=== PATIENT | female | born 1945 | race Caucasian/White ===

== ENCOUNTER 2018-05-13 11:40 | Outpatient (CLI) | payer SELFPAY | END 2018-05-13 11:41 | disposition EMS.NT | LOC: EMS 11:40 | PROVIDERS: ATTEND Surgery | DX: R47.81 Slurred speech (principal); R53.83 Other fatigue ==

== ENCOUNTER 2018-12-08 08:39 | Outpatient (CLI) | payer MEDICARE ==
--- NOTE | 2018-12-08 11:23 | XRAY Report ---
Reason: COUGH,SOB Procedure Date: 12/08/2018 Accession Number: [id number] / [id number] Procedure: XRS - Chest 2 View X-Ray CPT Code: 60110 FULL RESULT: EXAM: CHEST RADIOGRAPHY EXAM DATE: 12/08/2018 10:45 AM. CLINICAL HISTORY: Cough, shortness of breath. COMPARISON: None. TECHNIQUE: 2 views. FINDINGS: Lungs/Pleura: No focal opacities evident. No pleural effusion. No pneumothorax. Normal volumes. Mediastinum: Heart and mediastinal contours are suggestive of mild borderline cardiomegaly. Other: None. IMPRESSION: Question mild borderline cardiomegaly, otherwise no acute cardiopulmonary abnormality is detected. RADIA
== END 2018-12-08 08:40 | disposition home or self-care (01) ==
LOC: DI.S 08:39
PROVIDERS: ATTEND Family Medicine
DX: J20.9 Acute bronchitis, unspecified (principal); J45.41 Moderate persistent asthma with (acute) exacerbation
CPT/HCPCS: 71046

== ENCOUNTER 2019-01-04 16:31 | Outpatient (CLI) | payer MEDICARE, OTHER ==
--- NOTE | 2019-01-05 08:16 | Ultrasound Report ---
Reason: L LE EDEMA, CALF PAIN, TTP Procedure Date: 01/04/2019 Accession Number: [id number] / [id number] Procedure: US - Duplex Ext Veins Left CPT Code: FULL RESULT: EXAM: LEFT LOWER EXTREMITY VENOUS ULTRASOUND EXAM DATE: 01/04/2019 05:24 PM. CLINICAL HISTORY: Left lower extremity edema, calf pain, tenderness to palpation. COMPARISON: None. TECHNIQUE: Real-time sonographic vascular imaging was performed by the land development project manager through the lower extremity utilizing both color-flow and Doppler spectral analysis. Multiple business banking representative static images were saved for review. FINDINGS: Common Femoral Vein (CFV): Normal. CFV-GSV Junction: Normal. Profunda Femoral Vein (PFV): Normal. Femoral Vein (FV) Prox: Normal. Femoral Vein (FV) Mid: Normal. Femoral Vein (FV) Dist: Normal. Popliteal Vein: Normal. Posterior Tibial Veins: Limited visualization. Given the limitations, no thrombus identified. Peroneal Veins: Limited visualization. Given the limitations, no thrombus identified. Contralateral Side CFV: Normal. Other: Evaluation of the calf vessels limited due to body habitus. IMPRESSION: 1. Suboptimal visualization of posterior tibial and peroneal veins. 2. Given the limitations, no evidence for deep venous thrombosis. RADIA
== END 2019-01-04 16:32 | disposition home or self-care (01) ==
LOC: DI 16:31
PROVIDERS: ATTEND Family Medicine
DX: M79.662 Pain in left lower leg (principal); R60.0 Localized edema

== ENCOUNTER 2019-06-09 11:36 | Outpatient (CLI) | payer MEDICARE ==
[2019-06-09 17:08] LABS: BASOPHILS # (AUTO) 0.1 10^3/uL (0.0-0.1); BASOPHILS % (AUTO) 0.8 %; EOSINOPHILS # (AUTO) 0.3 10^3/uL (0.0-0.7); EOSINOPHILS % (AUTO) 3.5 %; HGB - HEMOGLOBIN 13.1 g/dL (12.0-16.0); LYMPHOCYTES # (AUTO) 1.8 10^3/uL (1.5-3.5); MEAN CORPUSCULAR HEMOGLOBIN 30.5 pg (27.0-31.0); MEAN CORPUSCULAR VOLUME 95.6 fL (81.0-99.0); MONOCYTES # (AUTO) 0.7 10^3/uL (0.0-1.0); MONOCYTES % (AUTO) 8.9 %; NEUTROPHILS # (AUTO) 5.2 10^3/uL (1.5-6.6); NEUTROPHILS % (AUTO) 64.5 %; PLT - PLATELET COUNT 239 10^3/uL (130-450); RED BLOOD COUNT 4.29 10^6/uL (4.20-5.40)
[2019-06-09 17:20] LABS: HB2 TOTAL 13.2 g/dL; HEMOGLOBIN A1C 0.58 g/dL; HEMOGLOBIN A1C % 6.2 % (4.6-6.2)
[2019-06-09 18:02] LABS: ALBUMIN 3.9 g/dL (3.2-5.5); ALBUMIN/GLOBULIN RATIO 1.3 (1.0-2.2); ALKALINE PHOSPHATASE 57 IU/L (42-121); ALT ALANINE AMINOTRANSFERASE 30 IU/L (10-60); AST ASPARTATE AMINOTRANSFERASE 28 IU/L (10-42); BILIRUBIN,TOTAL 0.8 mg/dL (0.2-1.0); BUN - BLOOD UREA NITROGEN 12 mg/dL (6-20); CALCIUM 8.9 mg/dL (8.5-10.3); CARBON DIOXIDE - CO2 26 mmol/L (21-32); CHLORIDE 106 mmol/L (101-111); CHOL/HDL RATIO 2.6 (<4.4); CHOLESTEROL 115 mg/dL; CREATININE 0.7 mg/dL (0.4-1.0); GFR - MDRD 82 (>89); GLUCOSE 99 mg/dL (70-100); HDL CHOLESTEROL 44 mg/dL; LDL CHOLESTEROL,CALCULATED 51 mg/dL; LDL/HDL RATIO 1.2 (<4.4); SODIUM 139 mmol/L (135-145); VLDL CHOLESTEROL 20 mg/dL
[2019-06-09 18:13] LABS: FREE T4 (FREE THYROXINE) 0.83 ng/dL (0.58-1.64)
[2019-06-09 18:16] LABS: FERRITIN 60.5 ng/mL (11.0-306.8); TOTAL T3 0.88 ng/mL (0.87-1.78)
[2019-06-13 14:14] LABS: T3 REVERSE 15 ng/dL (8-25)
== END 2019-06-09 11:37 | disposition home or self-care (01) ==
LOC: LAB.S 11:36
PROVIDERS: ATTEND Internal Medicine
DX: Z00.00 Encounter for general adult medical examination without abnormal findings (principal); E78.5 Hyperlipidemia, unspecified; I10 Essential (primary) hypertension; I67.89 Other cerebrovascular disease; R73.01 Impaired fasting glucose; E03.9 Hypothyroidism, unspecified; R79.82 Elevated C-reactive protein (CRP); R73.03 Prediabetes; D72.821 Monocytosis (symptomatic); E34.9 Endocrine disorder, unspecified; R53.83 Other fatigue; E66.01 Morbid (severe) obesity due to excess calories
CPT/HCPCS: 36415; 80053; 80061; 82626; 82728; 83036; 83721; 84439; 84443; 84480; 84481; 84482; 85025; 86140; 86141

== ENCOUNTER 2019-06-27 14:36 | Emergency (ER) | payer MEDICARE, OTHER ==
[2019-06-27 15:16] LABS: BASOPHILS # (AUTO) 0.1 10^3/uL (0.0-0.1); BASOPHILS % (AUTO) 0.7 %; EOSINOPHILS # (AUTO) 0.3 10^3/uL (0.0-0.7); EOSINOPHILS % (AUTO) 3.1 %; HGB - HEMOGLOBIN 12.7 g/dL (12.0-16.0); LYMPHOCYTES # (AUTO) 1.8 10^3/uL (1.5-3.5); LYMPHOCYTES % (AUTO) 19.8 %; MEAN CORPUSCULAR HEMOGLOBIN 30.5 pg (27.0-31.0); MEAN CORPUSCULAR HGB CONC 32.2 g/dL (32.0-36.0); MEAN CORPUSCULAR VOLUME 94.7 fL (81.0-99.0); MEAN PLATELET VOLUME 10.9 fL (7.9-10.8); MONOCYTES % (AUTO) 11.2 %; NEUTROPHILS % (AUTO) 64.8 %; PLT - PLATELET COUNT 244 10^3/uL (130-450); RED BLOOD COUNT 4.16 10^6/uL (4.20-5.40); RED CELL DISTRIBUTION WIDTH 12.8 % (12.0-15.0); WHITE BLOOD COUNT 9.2 x10^3/uL (4.8-10.8)
--- NOTE | 2019-06-27 15:26 | XRAY Report ---
Reason: Chest Pain Procedure Date: 06/27/2019 Accession Number: [id number] / [id number] Procedure: XR - Chest 1 View X-Ray CPT Code: 35767 Final Report FULL RESULT: EXAM: CHEST RADIOGRAPHY EXAM DATE: 06/27/2019 03:07 PM. CLINICAL HISTORY: Chest Pain. COMPARISON: None. TECHNIQUE: 1 view. FINDINGS: Lungs/Pleura: No focal opacities evident. No pleural effusion. No pneumothorax. Mediastinum: Within exam limitations, the cardiomediastinal contour is normal. Other: None. IMPRESSION: Normal single view chest. RADIA
[2019-06-27 15:29] LABS: ALBUMIN/GLOBULIN RATIO 1.3 (1.0-2.2); BILIRUBIN,TOTAL 0.7 mg/dL (0.2-1.0); CALCIUM 9.2 mg/dL (8.5-10.3); CREATININE 0.7 mg/dL (0.4-1.0)
--- NOTE | 2019-06-27 15:34 | ED Physician Documentation ---
History of Present Illness - Stated complaint Stated Complaint: CP X 3 DAYS - Chief complaint Chief Complaint: Cardiac - History obtained from History obtained from: Patient, Friend - History of Present Illness Timing: How many days ago (3) Pain level max: 4 Pain level now: 0 - Additonal information Additional information: 73-year-old female presents to the emergency department stating that she had left-sided chest pain while working out a few days ago, this resolved quickly after she stopped working out. She was asymptomatic until today when she developed right-sided chest pain. She states that her right arm felt strange as well. This lasted 4 to 5 minutes. Has since resolved. She is on Plavix from a prior TIA. She states that she is followed by cardiology at [facility] and has an appointment on . She is currently asymptomatic. Nothing makes it better or worse. She has been ambulating throughout the day without any pain or without any difficulty. Review of Systems Ten Systems: 10 systems reviewed and negative Constitutional: denies: Fever, Chills Nose: denies: Rhinorrhea / runny nose, Congestion Throat: denies: Sore throat Respiratory: denies: Cough GI: denies: Vomiting, Diarrhea Skin: denies: Rash Musculoskeletal: denies: Neck pain, Back pain Neurologic: denies: Headache PD PAST MEDICAL HISTORY - Past Medical History Past Medical History: Yes Neuro: TIA - Past Surgical History Past Surgical History: No - Allergies Allergies/Adverse Reactions: Allergies Allergy/AdvReac Type Severity Reaction Status Date / Time Sulfa (Sulfonamide AdvReac Rash Verified 06/27/19 14:41 Antibiotics) - Living Situation Living Arrangement: reports: At home - Social History Does the pt drink ETOH?: No Does the pt have substance abuse?: No - Family History Family history: reports: CAD PD ED PE NORMAL - Vitals Vital signs reviewed: Yes - General General: Alert and oriented X 3, No acute distress, Well developed/nourished - HEENT HEENT: Moist mucous membranes - Neck Neck: Supple, no meningeal sign, No bruit - Cardiac Cardiac: RRR, No murmur, Strong equal pulses - Respiratory Respiratory: No respiratory distress, Clear bilaterally - Abdomen Abdomen: Soft, Non tender, Non distended - Derm Derm: Warm and dry - Extremities Extremities: No edema, No calf tenderness / cord - Neuro Neuro: Alert and oriented X 3 - Psych Psych: Normal mood, Normal affect Results - Vitals Vitals: Vital Signs - 24 hr 06/27/19 06/27/19 06/27/19 14:42 15:12 16:17 Temperature 36.7 C Heart Rate 69 67 66 Respiratory 16 18 18 Rate Blood Pressure 148/72 H 149/72 H 138/65 H O2 Saturation 98 97 99 Oxygen O2 Source Room air - EKG (time done) 1450 Rate: Rate (enter#) (68) Rhythm: NSR [place]: Normal Intervals: Prolonged [place] QRS: Normal Ischemia: Normal ST segments - Labs Labs: Laboratory Tests 06/27/19 06/27/19 06/27/19 15:09 15:09 15:09 WBC 9.2 RBC 4.16 L Hgb 12.7 Hct 39.4 MCV 94.7 MCH 30.5 MCHC 32.2 RDW 12.8 Plt Count 244 MPV 10.9 H Neut # (Auto) 6.0 Lymph # (Auto) 1.8 [place] # (Auto) 1.0 Eos # (Auto) 0.3 Baso # (Auto) 0.1 Absolute Nucleated RBC 0.00 Nucleated RBC % 0.0 Sodium 138 Potassium 4.2 Chloride 101 Carbon Dioxide 26 Anion Gap 11.0 BUN 14 Creatinine 0.7 Estimated GFR (MDRD) 82 L Glucose 95 Calcium 9.2 Total Bilirubin 0.7 AST 27 ALT 27 Alkaline Phosphatase 54 Troponin I High Sens 2.7 Total Protein 7.0 Albumin 4.0 Globulin 3.0 Albumin/Globulin Ratio 1.3 Lipase 37 - Rads (name of study) cxr Radiology: Prelim report reviewed, EMP read contemporaneously, See rad report (normal) PD MEDICAL DECISION MAKING - ED course Complexity details: reviewed results, re-evaluated patient, considered differential (No ST elevation [place], no aortic dissection, no PE, no tension pneumothorax, no aortic aneurysm), d/w patient ED course: Patient with episodes of chest pain over the past several days. Negative high- sensitivity troponin. I spoke with on-call cardiology at [facility] who reviewed her chart. She had a calcium score of 0 in the spring 2017. Had a negative cardiac stress test in 2012. We will have her continue her Plavix and she will follow-up with her doctor on to discuss a repeat stress test. I have r ecommended to her that she avoid strenuous activity until she is released by her doctor. Patient counseled regarding signs and symptoms for which I believe and urgent re-evaluation would be necessary. Patient with good understanding of and agreement to plan and is comfortable going home at this time This document was made in part using voice recognition software. While efforts are made to proofread this document, sound alike and grammatical errors may occur. Departure - Departure Disposition: Home, Self Care Clinical Impression: Chest pain Qualifiers: Chest pain type: unspecified Qualified Code(s): R07.9 - Chest pain, unspecified Condition: Good Instructions: ED Chest Pain Atypical Unkn Cause Follow-Up: Alejandro Gerard MD [Primary Care Provider] - ROSINA NUNO MD [Physician No Access] - Within 3 Days Comments: Continue your current medications at home. 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 Avoid intense exercise until then.
[2019-06-27 16:20] VITALS: BP 138/65
== END 2019-06-27 16:25 | disposition home or self-care (01) ==
LOC: ED 14:36
DX: R07.9 Chest pain, unspecified (principal)
CPT/HCPCS: 36415; 71045; 80053; 83690; 84484; 85025; 93005; 99284

== ENCOUNTER 2019-10-26 13:12 | Outpatient (CLI) | payer MEDICARE, OTHER ==
[2019-10-26 13:35] LABS: BASOPHILS # (AUTO) 0.1 10^3/uL (0.0-0.1); BASOPHILS % (AUTO) 0.7 %; EOSINOPHILS # (AUTO) 0.3 10^3/uL (0.0-0.7); EOSINOPHILS % (AUTO) 2.9 %; HGB - HEMOGLOBIN 12.9 g/dL (12.0-16.0); LYMPHOCYTES # (AUTO) 2.3 10^3/uL (1.5-3.5); LYMPHOCYTES % (AUTO) 26.4 %; MEAN CORPUSCULAR HEMOGLOBIN 30.1 pg (27.0-31.0); MEAN CORPUSCULAR HGB CONC 32.4 g/dL (32.0-36.0); MEAN CORPUSCULAR VOLUME 92.8 fL (81.0-99.0); MEAN PLATELET VOLUME 10.6 fL (7.9-10.8); MONOCYTES # (AUTO) 0.9 10^3/uL (0.0-1.0); MONOCYTES % (AUTO) 9.9 %; NEUTROPHILS # (AUTO) 5.2 10^3/uL (1.5-6.6); NEUTROPHILS % (AUTO) 59.9 %; PLT - PLATELET COUNT 254 10^3/uL (130-450); RED BLOOD COUNT 4.29 10^6/uL (4.20-5.40); RED CELL DISTRIBUTION WIDTH 12.5 % (12.0-15.0); WHITE BLOOD COUNT 8.6 x10^3/uL (4.8-10.8)
[2019-10-26 13:45] LABS: HB2 TOTAL 13.7 g/dL; HEMOGLOBIN A1C 0.53 g/dL; HEMOGLOBIN A1C % 5.7 % (4.6-6.2)
[2019-10-26 13:51] LABS: ALBUMIN 4.1 g/dL (3.2-5.5); ALBUMIN/GLOBULIN RATIO 1.5 (1.0-2.2); BILIRUBIN,TOTAL 0.9 mg/dL (0.2-1.0); CALCIUM 9.4 mg/dL (8.5-10.3); CREATININE 0.7 mg/dL (0.4-1.0); CRP HIGH SENSITIVITY 8.9 mg/L; TOTAL PROTEIN 6.9 g/dL (6.7-8.2)
[2019-10-26 13:59] LABS: THYROID STIMULATING HORMONE 2.58 uIU/mL (0.34-5.60)
[2019-10-26 14:00] LABS: FREE T4 (FREE THYROXINE) 0.85 ng/dL (0.58-1.64)
[2019-10-26 14:01] LABS: FREE T3 3.22 pg/mL (2.5-3.9)
[2019-10-26 14:04] LABS: FERRITIN 69.4 ng/mL (11.0-306.8); TOTAL T3 0.88 ng/mL (0.87-1.78)
== END 2019-10-26 13:13 | disposition home or self-care (01) ==
LOC: LAB 13:12
PROVIDERS: ATTEND Family Medicine
DX: E78.5 Hyperlipidemia, unspecified (principal); R73.09 Other abnormal glucose; R53.83 Other fatigue; D64.9 Anemia, unspecified; E03.9 Hypothyroidism, unspecified
CPT/HCPCS: 36415; 80053; 82626; 82728; 83036; 83540; 84439; 84443; 84466; 84480; 84481; 85025; 86141

== ENCOUNTER 2020-02-10 10:42 | Outpatient (CLI) | payer MEDICARE, OTHER ==
[2020-02-10 15:57] LABS: BASOPHILS # (AUTO) 0.1 10^3/uL (0.0-0.1); BASOPHILS % (AUTO) 0.8 %; EOSINOPHILS # (AUTO) 0.3 10^3/uL (0.0-0.7); EOSINOPHILS % (AUTO) 3.5 %; HGB - HEMOGLOBIN 12.7 g/dL (12.0-16.0); LYMPHOCYTES % (AUTO) 23.7 %; MEAN CORPUSCULAR HEMOGLOBIN 30.9 pg (27.0-31.0); MEAN CORPUSCULAR HGB CONC 31.9 g/dL (32.0-36.0); MEAN CORPUSCULAR VOLUME 96.8 fL (81.0-99.0); MEAN PLATELET VOLUME 11.3 fL (7.9-10.8); MONOCYTES # (AUTO) 0.6 10^3/uL (0.0-1.0); MONOCYTES % (AUTO) 7.4 %; NEUTROPHILS # (AUTO) 5.5 10^3/uL (1.5-6.6); NEUTROPHILS % (AUTO) 64.2 %; PLT - PLATELET COUNT 238 10^3/uL (130-450); RED BLOOD COUNT 4.11 10^6/uL (4.20-5.40); RED CELL DISTRIBUTION WIDTH 12.8 % (12.0-15.0); WHITE BLOOD COUNT 8.5 x10^3/uL (4.8-10.8)
[2020-02-10 16:21] LABS: ALBUMIN 4.1 g/dL (3.2-5.5); ALBUMIN/GLOBULIN RATIO 1.5 (1.0-2.2); BILIRUBIN,TOTAL 0.6 mg/dL (0.2-1.0); CREATININE 0.7 mg/dL (0.4-1.0); CRP HIGH SENSITIVITY 7.7 mg/L; TOTAL PROTEIN 6.8 g/dL (6.7-8.2)
[2020-02-10 16:28] LABS: THYROID STIMULATING HORMONE 2.3 uIU/mL (0.34-5.60)
[2020-02-10 16:30] LABS: FREE T4 (FREE THYROXINE) 1.01 ng/dL (0.58-1.64)
[2020-02-10 16:31] LABS: FREE T3 3.08 pg/mL (2.5-3.9)
[2020-02-10 16:35] LABS: TOTAL T3 0.83 ng/mL (0.87-1.78)
[2020-02-10 16:36] LABS: FERRITIN 53.3 ng/mL (11.0-306.8)
[2020-02-10 20:00] LABS: HEMOGLOBIN A1c% 6.3 % (4.27-6.07)
[2020-02-11 12:16] LABS: HOMOCYSTEINE 5.3 umol/L (<10.4)
== END 2020-02-10 10:43 | disposition home or self-care (01) ==
LOC: LAB.S 10:42
PROVIDERS: ATTEND Family Medicine
DX: E03.9 Hypothyroidism, unspecified (principal); R53.83 Other fatigue; R73.09 Other abnormal glucose; I10 Essential (primary) hypertension; D64.9 Anemia, unspecified; E78.5 Hyperlipidemia, unspecified; E55.9 Vitamin D deficiency, unspecified
CPT/HCPCS: 36415; 80053; 82306; 82626; 82728; 83036; 83090; 84439; 84443; 84480; 84481; 84482; 85025; 86141

== ENCOUNTER 2020-06-07 12:26 | Outpatient (CLI) | payer MEDICARE, OTHER ==
[2020-06-07 15:57] LABS: BASOPHILS # (AUTO) 0.1 10^3/uL (0.0-0.1); BASOPHILS % (AUTO) 0.7 %; EOSINOPHILS # (AUTO) 0.2 10^3/uL (0.0-0.7); EOSINOPHILS % (AUTO) 1.9 %; HGB - HEMOGLOBIN 13.3 g/dL (12.0-16.0); LYMPHOCYTES # (AUTO) 1.9 10^3/uL (1.5-3.5); LYMPHOCYTES % (AUTO) 20.7 %; MEAN CORPUSCULAR HEMOGLOBIN 31.6 pg (27.0-31.0); MEAN CORPUSCULAR HGB CONC 32.7 g/dL (32.0-36.0); MEAN CORPUSCULAR VOLUME 96.7 fL (81.0-99.0); MEAN PLATELET VOLUME 11.7 fL (7.9-10.8); MONOCYTES # (AUTO) 0.8 10^3/uL (0.0-1.0); MONOCYTES % (AUTO) 8.3 %; NEUTROPHILS # (AUTO) 6.3 10^3/uL (1.5-6.6); NEUTROPHILS % (AUTO) 68.2 %; PLT - PLATELET COUNT 243 10^3/uL (130-450); RED BLOOD COUNT 4.21 10^6/uL (4.20-5.40); RED CELL DISTRIBUTION WIDTH 12.6 % (12.0-15.0); WHITE BLOOD COUNT 9.2 x10^3/uL (4.8-10.8)
[2020-06-07 16:24] LABS: THYROID STIMULATING HORMONE 1.97 uIU/mL (0.34-5.60)
[2020-06-07 16:28] LABS: FREE T3 3.32 pg/mL (2.5-3.9); FREE T4 (FREE THYROXINE) 0.82 ng/dL (0.58-1.64)
[2020-06-07 16:32] LABS: TOTAL T3 0.85 ng/mL (0.87-1.78)
[2020-06-07 16:33] LABS: FERRITIN 70.1 ng/mL (11.0-306.8)
== END 2020-06-07 12:27 | disposition home or self-care (01) ==
LOC: LAB.S 12:26
PROVIDERS: ATTEND Family Medicine
DX: R73.09 Other abnormal glucose (principal); E03.9 Hypothyroidism, unspecified; D64.9 Anemia, unspecified
CPT/HCPCS: 36415; 80053; 82728; 83036; 84439; 84443; 84480; 84481; 84482; 85025

== ENCOUNTER 2020-08-15 10:13 | Outpatient (CLI) | payer MEDICARE, OTHER ==
--- NOTE | 2020-08-15 17:03 | DEXA Report ---
PROCEDURE: Dexa Spine and/or Hip INDICATIONS: POST MENOPUASAL, OSTEOPENIA TECHNIQUE: Dual energy x-ray absorptiometry (DXA) was performed on a MPSTOR System. Regions measur ed are the AP Spine, femoral neck, and if needed forearm. COMPARISON: None. FINDINGS: Lumbar Spine: Bone Mineral Density 1.416 g/cm/cm,T score 2.0, normal Left Hip: Bone Mineral Density 0.825 g/cm/cm,T score -1.4, osteopenia. Left Femoral Neck: Bone Mineral Density 0.663 g/cm/cm, T score -2.7, osteoporosis Left forearm: Bone Mineral Density 0.710 g/cm/cm, T score -1.9, osteopenia (T score greater or equal to -1.0: NORMAL) (T score from -1.1 to -2.4: OSTEOPENIA) (T score less than or equal to -2.5 to: OSTEOPOROSIS) Impression: Osteopenia. Patients with diagnosis of osteoporosis or osteopenia should have regular bone mineral density assess ment. For those eligible for Medicare, routine testing is allowed once every 2 years. Testing frequ ency can be increased for patients who have rapidly progressing disease or for those who are receivin g medical therapy to restore bone mass. Reviewed by: Idalia Ramey MD, PhD on 08/15/2020 5:01 PM PDT Approved by: Idalia Ramey MD, PhD on 08/15/2020 5:01 PM PDT Station ID: [id number]
== END 2020-08-15 10:14 | disposition home or self-care (01) ==
LOC: DI 10:13
PROVIDERS: ATTEND Family Medicine
DX: M85.80 Other specified disorders of bone density and structure, unspecified site (principal)

== ENCOUNTER 2020-09-13 11:22 | Outpatient (CLI) | payer MEDICARE, OTHER ==
[2020-09-13 15:15] LABS: BASOPHILS # (AUTO) 0.1 10^3/uL (0.0-0.1); BASOPHILS % (AUTO) 0.8 %; EOSINOPHILS # (AUTO) 0.3 10^3/uL (0.0-0.7); EOSINOPHILS % (AUTO) 3.1 %; HCT - HEMATOCRIT 38.2 % (37.0-47.0); HGB - HEMOGLOBIN 12.6 g/dL (12.0-16.0); LYMPHOCYTES % (AUTO) 23.6 %; MEAN CORPUSCULAR HEMOGLOBIN 31.4 pg (27.0-31.0); MEAN CORPUSCULAR VOLUME 95.3 fL (81.0-99.0); MEAN PLATELET VOLUME 11.4 fL (7.9-10.8); MONOCYTES # (AUTO) 0.8 10^3/uL (0.0-1.0); MONOCYTES % (AUTO) 8.9 %; NEUTROPHILS # (AUTO) 5.3 10^3/uL (1.5-6.6); NEUTROPHILS % (AUTO) 63.4 %; PLT - PLATELET COUNT 249 10^3/uL (130-450); RED BLOOD COUNT 4.01 10^6/uL (4.20-5.40); RED CELL DISTRIBUTION WIDTH 12.4 % (12.0-15.0); WHITE BLOOD COUNT 8.4 x10^3/uL (4.8-10.8)
[2020-09-13 15:35] LABS: ALBUMIN/GLOBULIN RATIO 1.5 (1.0-2.2); BILIRUBIN,TOTAL 0.8 mg/dL (0.2-1.0); CALCIUM 9.7 mg/dL (8.5-10.3); CREATININE 0.8 mg/dL (0.4-1.0); CRP HIGH SENSITIVITY 6.8 mg/L; POTASSIUM 4.2 mmol/L (3.5-5.0); TOTAL PROTEIN 6.6 g/dL (6.7-8.2)
[2020-09-13 15:47] LABS: ESTIMATED AVERAGE GLUCOSE 126 mg/dL (70-100); FREE T3 3.12 pg/mL (2.5-3.9)
[2020-09-13 15:48] LABS: FREE T4 (FREE THYROXINE) 0.7 ng/dL (0.58-1.64); THYROID STIMULATING HORMONE 1.62 uIU/mL (0.34-5.60)
[2020-09-13 15:53] LABS: FERRITIN 52.5 ng/mL (11.0-306.8)
[2020-09-14 11:41] LABS: HOMOCYSTEINE 6.7 umol/L (<10.4)
== END 2020-09-13 11:23 | disposition home or self-care (01) ==
LOC: LAB.S 11:22
PROVIDERS: ATTEND Family Medicine
DX: I10 Essential (primary) hypertension (principal); R73.09 Other abnormal glucose; D64.9 Anemia, unspecified; R53.83 Other fatigue; E03.9 Hypothyroidism, unspecified; M60.89 Other myositis, multiple sites; E55.9 Vitamin D deficiency, unspecified; E78.5 Hyperlipidemia, unspecified; Z86.73 Personal history of transient ischemic attack (TIA), and cerebral infarction without residual deficits; R79.82 Elevated C-reactive protein (CRP)
CPT/HCPCS: 36415; 80053; 82306; 82626; 82728; 83036; 83090; 84439; 84443; 84480; 84481; 84482; 85025; 86141

== ENCOUNTER 2020-09-15 15:09 | Emergency (ER) | payer MEDICARE, OTHER ==
[2020-09-15 15:16] VITALS: BP 149/64
--- OUTSIDE RECORDS SUMMARY | 2020-09-15 15:30 | EXTERNAL MEDICAL SUMMARY RPT | Continuity of Care Document ---
:1945 Demographics Phone Unavailable Preferred Language Unknown Marital Status Unknown Christian Affiliation Unknown Race Unknown Ethnic Group Unknown Author Organization [facility] Address [address] [phone] Phone Social History date description facility [phone]
--- NOTE | 2020-09-15 15:54 | XRAY Report ---
PROCEDURE: Foot 3 View LT INDICATIONS: Trauma TECHNIQUE: 3 views of the foot were acquired. COMPARISON: None FINDINGS: Bones: There is a minimally displaced intra-articular fracture at the base of the proximal phalanx of the fourth digit. Osseous structures are demineralized limiting evaluation for nondisplaced fracture . There is hallux valgus with moderate degenerative changes of the first metatarsophalangeal joint an d adjacent osseous and soft tissue bunion formation adjacently. There is advanced degenerative change s of the midfoot. Mild to moderate degenerative changes of the ankle. Soft tissues: Spurring of the calcaneus at the plantar fascial insertion. IMPRESSION: Minimally displaced intra-articular fracture of the proximal phalanx of the fourth digit. Advanced degenerative changes of the foot. Hallux valgus with moderate degenerative changes of the first metatarsophalangeal joint and bunion fo rmation. Reviewed by: Satnam Lay DO on 09/15/2020 2:53 PM HA Approved by: Satnam Lay DO on 09/15/2020 2:53 PM HA Station ID: [id number]
--- NOTE | 2020-09-15 16:08 | ED Physician Documentation ---
PD HPI UPPER EXT INJURY - Stated complaint Stated Complaint: GLF, LFT SIDE PX - Chief complaint Chief Complaint: Trauma Ext - History obtained from History obtained from: Patient (She had a simple mechanical slip and fall onto her left side earlier today. The most painful spot is the left fourth toe, but also has some shoulder discomfort. Has a history of rotator cuff issues. Declines pain medication.) Review of Systems Constitutional: reports: Reviewed and negative Eyes: reports: Reviewed and negative Ears: reports: Reviewed and negative Nose: reports: Reviewed and negative Throat: reports: Reviewed and negative Cardiac: reports: Reviewed and negative PD PAST MEDICAL HISTORY - Past Medical History Past Medical History: No Neuro: TIA - Past Surgical History Past Surgical History: No - Allergies Allergies/Adverse Reactions: Allergies Allergy/AdvReac Type Severity Reaction Status Date / Time Sulfa (Sulfonamide AdvReac Rash Verified 06/27/19 14:41 Antibiotics) - Social History Does the pt smoke?: No Smoking Status: Never smoker Does the pt drink ETOH?: No Does the pt have substance abuse?: No PD ED PE NORMAL - Vitals Vital signs reviewed: Yes - General General: Alert and oriented X 3, No acute distress - Neck Neck: Supple, no meningeal sign, No bony TTP - Extremities Extremities: Other (Left foot is tender at the proximal phalanx of the fourth toe with overlying bruising but no limited range of motion. No other foot tenderness. The left shoulder is nontender. Able to abduct to near 90 degrees. Flexion and extension is painful but not limited. Passively has Normal range of motio) - Neuro Neuro: Alert and oriented X 3, Normal speech Results - Vitals Vitals: Vital Signs - 24 hr 09/15/20 15:12 Temperature 36.9 C Heart Rate 80 Respiratory 18 Rate Blood Pressure 149/64 H O2 Saturation 96 Oxygen O2 Source Room air - Rads (name of study) R foot XR Radiology: EMP read contemporaneously (Minimally displaced intra-articular fracture of the proximal phalanx of the fourth digit. Advanced degenerative changes and hallux valgus/bunion) PD MEDICAL DECISION MAKING - ED course ED course: Her third and fourth toes were kiya taped and she was placed in a fracture shoe. It seems that on the left she probably has a rotator cuff injury. Her examination is not consistent with a fracture. She has equipment to do rotator cuff exercises at home and recommended she do this gently at the beginning and follow-up with her orthopedist. Departure - Departure Disposition: 01 Home, Self Care Condition: Good Record reviewed to determine appropriate education?: Yes Instructions: ED Fx Toe Closed, ED Tendinitis Rotator Cuff Follow-Up: [facility] [Provider Group] Comments: Follow-up with orthopedics within the week for recheck of the fractured toe and apparent rotator cuff injury on the left. Keep the third and fourth toes kiya taped as shown today and wear the fracture shoe for comfort. You can start to gently do rotator cuff exercises as you have done in the past. Tylenol as needed for pain.
== END 2020-09-15 16:26 | disposition home or self-care (01) ==
LOC: ED 15:09
DX: S92.512A Displaced fracture of proximal phalanx of left lesser toe(s), initial encounter for closed fracture (principal); S46.012A Strain of muscle(s) and tendon(s) of the rotator cuff of left shoulder, initial encounter; W01.0XXA Fall on same level from slipping, tripping and stumbling without subsequent striking against object, initial encounter; M19.072 Primary osteoarthritis, left ankle and foot; M20.12 Hallux valgus (acquired), left foot; M21.612 Bunion of left foot
CPT/HCPCS: 99282; 99284

== ENCOUNTER 2020-10-26 10:40 | Outpatient (CLI) | payer MEDICARE | END 2020-10-26 23:59 | disposition home or self-care (01) | LOC: COV 10:40 | PROVIDERS: ATTEND Family Medicine | DX: R53.83 Other fatigue (principal); R07.0 Pain in throat; Z20.822 Contact with and (suspected) exposure to COVID-19 ==

== ENCOUNTER 2020-11-03 12:27 | Emergency (ER) | payer MEDICARE ==
--- OUTSIDE RECORDS SUMMARY | 2020-11-03 12:32 | EXTERNAL MEDICAL SUMMARY RPT | Continuity of Care Document ---
:1945 Demographics Phone Unavailable Preferred Language Unknown Marital Status Unknown Denominational Affiliation Unknown Race Unknown Ethnic Group Unknown Author Organization [facility] Address [address] [phone] Phone Allergies Encounters Medications Problems Results
--- OUTSIDE RECORDS SUMMARY | 2020-11-03 12:47 | EXTERNAL MEDICAL SUMMARY RPT | Continuity of Care Document ---
:1945 Demographics Phone Unavailable Preferred Language Unknown Marital Status Unknown Holiness Affiliation Unknown Race Unknown Ethnic Group Unknown Author Organization [facility] Address [address] [phone] Phone Allergies Encounters Medications Problems Results
--- NOTE | 2020-11-03 13:47 | CT Report ---
PROCEDURE: HEAD WO INDICATIONS: R eye ecchymosis s/p wheelbarrow hitting head wedn TECHNIQUE: Noncontrast 4.5 mm thick angled axial sections acquired from the foramen magnum to the vertex. For r adiation dose reduction, the following was used: automated exposure control, adjustment of mA and/or kV according to patient size. COMPARISON: None. FINDINGS: Image quality: Excellent. CSF spaces: Basal cisterns are patent. No extra-axial fluid collections. Ventricles are normal in size and shape. Brain: No midline shift. No intracranial masses or hemorrhage. Griffin-white matter interface is norm al. Skull and face: Calvarium and visualized facial bones are intact, without suspicious lesions. Sinuses: Visualized sinuses and mastoids are clear. IMPRESSION: No trauma found, no intracranial hemorrhage identified. Reviewed by: Van Molina MD on 11/03/2020 12:46 PM HA Approved by: Van Molina MD on 11/03/2020 12:46 PM [id number] Station ID: [id number]
[2020-11-03] MEDS ORDERED: ACETAMINOPHEN 325 MG TABLET PO STA (14:02)
--- NOTE | 2020-11-03 14:04 | ED Physician Documentation ---
History of Present Illness - Stated complaint Stated Complaint: RT EYE INJ - Chief complaint Chief Complaint: Heent - History obtained from History obtained from: Patient - Additonal information Additional information: 74-year-old woman on Plavix presents after hitting her right eye with a wheelbarrow handle a few days ago and sustaining ecchymosis to the eye. She endorses moderate severity pain to the right frontal area where she bruised her eye that is nonradiating, aching, constant, sudden onset when she injured it. Denies vision changes, headache, nausea or vomiting, lightheadedness. Denies other injury. Review of Systems Eyes: denies: Loss of vision Nose: denies: Epistaxis Skin: reports: Other (Ecchymosis) Neurologic: reports: Head injury. denies: Headache, LOC PD PAST MEDICAL HISTORY - Past Medical History Past Medical History: Yes Neuro: TIA - Past Surgical History Past Surgical History: No - Allergies Allergies/Adverse Reactions: Allergies Allergy/AdvReac Type Severity Reaction Status Date / Time Sulfa (Sulfonamide AdvReac Rash Verified 11/03/20 12:39 Antibiotics) - Social History Does the pt smoke?: No Smoking Status: Never smoker Does the pt drink ETOH?: No Does the pt have substance abuse?: No - Immunizations Immunizations are current?: Yes PD ED PE NORMAL - Vitals Vital signs reviewed: Yes - General General: Alert and oriented X 3, No acute distress, Well developed/nourished - HEENT HEENT: Atraumatic, PERRL, EOMI, Other (Right periorbital ecchymosis with small frontal hematoma superior to the right eye.) - Neck Neck: Supple, no meningeal sign, No bony TTP - Cardiac Cardiac: RRR - Respiratory Respiratory: No respiratory distress, Clear bilaterally - Back Back: No spinal TTP - Derm Derm: Normal color, Other (ecchymosis) - Extremities Extremities: No deformity - Neuro Neuro: Alert and oriented X 3, 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 CT of the head noncontributory. Return precautions given. Advised about concussion symptoms given. Patient will follow up with her primary doctor Departure - Departure Disposition: 01 Home, Self Care Clinical Impression: Ecchymosis of eye Condition: Good Instructions: ED Contusion Eye Comments: You were seen in the emergency department for an injury to your right eye. Your head CT did not show any breaks in the bone or bleeding in the brain.Please follow-up with your primary doctor this week. Return for any new or worsening symptoms or other concerns. Hope you feel better! Discharge Date/Time: 11/03/20 14:11
[2020-11-03 14:12] VITALS: BP 140/66
== END 2020-11-03 14:11 | disposition home or self-care (01) ==
LOC: ED 12:27
DX: S05.11XA Contusion of eyeball and orbital tissues, right eye, initial encounter (principal); W22.8XXA Striking against or struck by other objects, initial encounter; Z86.73 Personal history of transient ischemic attack (TIA), and cerebral infarction without residual deficits; Z79.02 Long term (current) use of antithrombotics/antiplatelets
CPT/HCPCS: 70450; 99284; A9270

== ENCOUNTER 2020-12-27 14:33 | Emergency (ER) | payer MEDICARE ==
[2020-12-27 14:55] VITALS: BP 148/77
--- NOTE | 2020-12-27 15:13 | ED Physician Documentation ---
PD HPI LOWER EXT INJURY - Stated complaint Stated Complaint: L FOOT PX/R KNEE BUMP - Chief complaint Chief Complaint: Ext Problem - History obtained from History obtained from: Patient - Additional information Additional information: Patient comes emergency department for chief complaint of left foot pain and right leg pain. She states she she has been having ongoing issues with her right knee and that she was actually seen at [facility] about a week ago for concerns over possible septic joint. She states they did blood work ultrasound and a number of other tests and ultimately determined she did not have a septic knee. She was told to follow-up with orthopedics which she did 4 days ago and she was told at that time that her hardware was loose and that she will probably need to go back to the operating room. Patient states that she has been walking with crutches and that while walking yesterday, she lost her balance and began to fall. She grabbed a nearby pillar and was able to keep her self from falling completely to the ground but did pivot forcefully on her left foot. She states she has noticed pain and swelling over the lateral aspect of her foot and also has had some pain with weightbearing. She is also developed a pain in her posterior right knee and was told by her orthopedist to come here to be evaluated for possible DVT. Patient denies any other complaints at this time. No shortness of breath or chest pain. Review of Systems Ten Systems: 10 systems reviewed and negative Constitutional: reports: Reviewed and negative Eyes: reports: Reviewed and negative Ears: reports: Reviewed and negative Nose: reports: Reviewed and negative Throat: reports: Reviewed and negative Cardiac: reports: Reviewed and negative Respiratory: reports: Reviewed and negative GI: reports: Reviewed and negative : reports: Reviewed and negative Skin: reports: Reviewed and negative Musculoskeletal: reports: Extremity pain, Extremity swelling, Pain with weight bearing Neurologic: reports: Reviewed and negative Psychiatric: reports: Reviewed and negative Endocrine: reports: Reviewed and negative Immunocompromised: reports: Reviewed and negative PD PAST MEDICAL HISTORY - Past Medical History Neuro: TIA - Past Surgical History Past Surgical History: No - Allergies Allergies/Adverse Reactions: Allergies Allergy/AdvReac Type Severity Reaction Status Date / Time Sulfa (Sulfonamide AdvReac Rash Verified 12/27/20 14:55 Antibiotics) - Social History Does the pt smoke?: No Smoking Status: Never smoker Does the pt drink ETOH?: No Does the pt have substance abuse?: No - Immunizations Immunizations are current?: Yes PD ED PE NORMAL - Vitals Vital signs reviewed: Yes - General General: Alert and oriented X 3, No acute distress, Well developed/nourished - HEENT HEENT: Atraumatic, PERRL, EOMI, Moist mucous membranes - Neck Neck: Supple, no meningeal sign - Cardiac Cardiac: Strong equal pulses - Respiratory Respiratory: No respiratory distress - Derm Derm: Normal color, Warm and dry, No rash - Extremities Extremities: No deformity, Other (Edema and tenderness over lateral aspect of left foot dorsum. Tenderness palpation of right popliteal area as well as proximal calf musculature. No masses. No distal edema.) - Neuro Neuro: Alert and oriented X 3 - Psych Psych: Normal mood, Normal affect Results - Vitals Vitals: Vital Signs - 24 hr 12/27/20 14:50 Temperature 36.9 C Heart Rate 74 Respiratory 18 Rate Blood Pressure 148/77 H O2 Saturation 99 Oxygen O2 Source Room air - Rads (name of study) L foot XR Radiology: Final report received, EMP read indepedently, See rad report (neg) US RLE Radiology: Final report received, EMP read indepedently, See rad report (no dvt) PD MEDICAL DECISION MAKING - ED course Complexity details: reviewed results, re-evaluated patient, considered differential, d/w patient ED course: The patient was worked up with ultrasound of the right leg and x-ray of the left foot. Both x-ray and ultrasound were negative. There is no fracture and no DVT. I discussed with the patient that she will need to follow-up with her orthopedist for further management of her ongoing right knee issues. Patient already has crutches and can continue to use these to help with her lower extremity limitations. Departure - Departure Disposition: 01 Home, Self Care Clinical Impression: Sprain of foot, left Qualifiers: Encounter type: initial encounter Qualified Code(s): S93.602A - Unspecified sprain of left foot, initial encounter Knee pain Qualifiers: Chronicity: acute Laterality: right Qualified Code(s): M25.561 - Pain in right knee Condition: Stable Instructions: ED Sprain Foot Comments: The x-ray of your foot and ultrasound of your right leg were both unremarkable. There is no evidence of a fracture in your foot and no clot. The only thing that was noted on your ultrasound was a lymph node in your right groin but this is not significant in terms of relation to your symptoms today. Please follow- up with your orthopedist as planned for further management of your knee pain. You may ambulate as tolerated on your left foot or use crutches or walker to try to relieve some of the discomfort. Please elevate and ice your foot whenever possible and use ibuprofen as needed to help the discomfort and inflammation.
--- NOTE | 2020-12-27 15:33 | XRAY Report ---
PROCEDURE: Foot 3 View LT INDICATIONS: pain/swelling 5th MT after fall TECHNIQUE: 3 views of the foot were acquired. COMPARISON: On FINDINGS: Bones: No fractures or dislocations. No suspicious bony lesions. Hallux valgus deformity noted. Bun ion noted. Severe midfoot osteoarthritis. Large plantar calcaneal bone spur. Soft tissues: No tibiotalar joint effusion. Achilles tendon appears normal. IMPRESSION: No fracture. No acute osseous lesion. If there persistent symptoms or continued clinical concern for pathology, then repeat plain film radiographs (7-10 days) or advanced imaging (CT, MR, bone scan) paty uld be considered for further evaluation. Reviewed by: Idalia Ramey MD, PhD on 12/27/2020 3:32 PM PDT Approved by: Idalia Ramey MD, PhD on 12/27/2020 3:32 PM PDT Station ID: [id number]
--- NOTE | 2020-12-27 16:35 | Ultrasound Report ---
PROCEDURE: Duplex Ext Veins Right INDICATIONS: R leg pain/swelling TECHNIQUE: Real-time imaging, as well as color and pulse Doppler interrogation, were performed of the lower extr emity deep veins from the inguinal ligament to the popliteal fossa. COMPARISON: None. FINDINGS: The visualized deep veins are normally compressible, and free of intraluminal thrombus. C olor and pulse Doppler demonstrate normal phasic intraluminal flow. There is normal augmentation res ponse to distal compression maneuver. The calf veins are not well visualized due to patient body hab itus. A subcutaneous avascular hypoechoic lesion in the right inguinal region measures 3.2 x 1.6 x 3.7 cm. A small nonspecific fluid collection is seen lateral to the knee measuring 2.4 x 0.5 x 1.5 cm. IMPRESSION: 1. No deep venous thrombosis visualized in the right lower extremity. However, the below-knee calf v essels are not well visualized. 2. Nonspecific avascular hypoechoic lesion in the right groin represent most likely represents an en larged lymph node, although other lesions are not excluded. Recommend correlation with clinical findi ngs. Follow-up ultrasound or MRI may be obtained if the lesion persists. Reviewed by: Jose De Anda MD on 12/27/2020 4:34 PM PDT Approved by: Jose De Anda MD on 12/27/2020 4:34 PM PDT Station ID: [id number]
== END 2020-12-27 16:56 | disposition home or self-care (01) ==
LOC: ED 14:33
DX: S93.602A Unspecified sprain of left foot, initial encounter (principal); X50.1XXA Overexertion from prolonged static or awkward postures, initial encounter; Y93.01 Activity, walking, marching and hiking; M25.561 Pain in right knee
CPT/HCPCS: 99283; 99284

== ENCOUNTER 2021-02-08 13:45 | Outpatient (CLI) | payer MEDICARE ==
--- NOTE | 2021-02-08 21:19 | CONSULTATION NOTE ---
Palliative Care Consultation - Referral Referring Provider: Dr. Gerard Time of Visit: [id number] Referral setting: Home Referral Reason: Depression/Acute on Chronic Right Knee Pain r/t failed hardware/Cat Scratch - Information Sources Records reviewed: Previous records reviewed History/Review of Systems obtained from: Patient Exam limitations: No limitations - History of Present Illness Brief History of Present Illness: This is a 75-year-old woman who presents with a complex history, specifically related to her history of joint replacements, and most recently discovery her right knee hardware is going to need replacing. She has a scheduled upcoming 03/05 surgery. She is quite anxious given the context of her previous experience with a right knee 6 years ago that became septic, after a right-sided revision, and a year on antibiotics. She has a long history of depression, currently being supported by a psychiatric nurse practitioner, but this has exacerbated her depressive mood, she has poorly controlled acute on chronic pain, and diminished social support secondary to coming out of the pandemic. Patient does admit to suicidality thoughts last week, is feeling better today. She has been recently increased on her Wellbutrin up to 450 mg, patient takes a significant amount of supplements, concern regarding interactions. Patient integrates immune support, and supplements to integrate into her healthcare belief model. Patient has quite a complex schedule in the context of her multiple supplements. I did try and capture most of them. Patient's pain is significant, worsens with any kind of movement in the context of slipping of the implant. There is no redness or tenderness, or heat when examined. 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 She has used tramadol 50 mg intermittently, with some mild relief. She also has a brace which she is encouraged to use given her pain is exacerbated my mechanical slippage. She also is using topicals intermittently. And CBD 25 mg 3 times daily. She had contacted palliative care and hopes for further support with her pending surgery, and resources. In the context of this, patient has all her advance care planning documents completed, has access to a plan for caregiving after her surgery, and given preferences of orthopedic surgeons, needing to minimize her opioid intake. Patient with multiple chronic illnesses, complex health history, palliative care did do an evaluation with recommendations in the context of current situation, but will stay on hold pending the outcome of her surgery and if need of further symptom management needs. 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: Other (new breast lump right) HEENT: reports: Chronic vision loss Psych: reports: Depression, Anxiety Musculoskeletal: reports: Osteoarthritis, Fatigue, Chronic back pain, Other (right shoulder rotator cuff tear) MRSA Hx?: No - Past Surgical History General: reports: Bowel surgery (colectomy), Hiatal hernia repair, Other (gastric banding) Ortho: reports: Hip replacement, Knee replacement, Spine surgery (cervical fusion), Other (multiple surg on knee [id number]; sepsis) Social History - Living Situation Living arrangement: At home Living Situation: Alone Support System: 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 She moved to [facility] a few years ago, lives in a neighborhood community, but support has diminished with the pandemic. She does have a daughter who recently moved to the [place], as well as one who lives in [place]. She has had a fairly traumatic complex history with loss of her parents, sister, and . 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 Family History - Family History Family History: Mother: , Alzheimer's Disease, Cancer, Diabetes, Type 2, Father: , Alcoholism (chemical dependency; of liver failure), Cancer, Diabetes, Type 2, Sister: , Other family: Alive and Well (2 daughters one with autoimmune issues) Medications/Allergies - Medications Home Medications: Ambulatory Orders Medication Instructions Recorded Confirmed Acetaminophen [Tylenol] 650 mg PO Q4HR PRN MDD 3000 mg 02/09/21 02/09/21 Adrenal Cortex Porcine 1 cap PO DAILY 02/09/21 Albuterol Sulfate [Proair Hfa 2 puffs INH Q4HR PRN 02/09/21 02/09/21 Inhaler] Alprazolam [Xanax] 0.25 mg PO Q6HR PRN 02/09/21 02/09/21 Amlodipine Besylate [Norvasc] 2.5 mg PO DAILY MDD 5 mg evening 02/09/21 02/09/21 if b/p > 150 Ascorbic Acid [Vitamin C with Eliana 500 mg PO DAILY 02/09/21 02/09/21 Hips] Atorvastatin [Lipitor] 10 mg PO QPM 02/09/21 02/09/21 Beclomethasone 40 Mcg [Qvar 40] 1 puffs INH BID 02/09/21 02/09/21 Bupropion HCl [Wellbutrin Xl] 450 mg PO DAILY 02/09/21 02/09/21 Calcium Citrate/Vitamin D3 1 cap PO DAILY 02/09/21 02/09/21 [Citracal-D3 200Mg-250 Unit Tab] Cbd 25 mg PO TID 02/09/21 Cholecalciferol [Vitamin D3] 5,000 unit PO DAILY 02/09/21 02/09/21 Chromium Picolinate 1 tab PO DAILY 02/09/21 02/09/21 Clopidogrel [Plavix] 75 mg PO DAILY 02/09/21 02/09/21 Diclofenac Sodium [Voltaren 40 mg TOP QID PRN 02/09/21 02/09/21 Arthritis Pain] Fluticasone [Flonase] 1 inh HECTOR BID PRN 02/09/21 02/09/21 Gabapentin [Neurontin] 600 mg PO TID 02/09/21 02/09/21 [place] 1 cap PO DAILY 02/09/21 Horse [place] 1 tab PO DAILY 02/09/21 Ipratropium/Albuterol [Combivent 2 puffs INH Q4HR PRN 02/09/21 02/09/21 Respimat] Levothyroxine Sodium 50 mcg PO DAILY 02/09/21 02/09/21 [Levothyroxine] Liothyronine [Cytomel] 5 mcg PO DAILY 02/09/21 02/09/21 Magnesium 250 mg PO BID 02/09/21 02/09/21 Metoprolol Succinate [Toprol Xl] 25 mg PO DAILY 02/09/21 02/09/21 Multivitamin [Theragran] 1 tab PO DAILY 02/09/21 02/09/21 [place]-3 Fatty Acids [Fish Oil 1,000 mg PO DAILY 02/09/21 02/09/21 Concentrate] Omeprazole Magnesium 20 mg PO DAILY 02/09/21 02/09/21 Prasterone (Dhea) [Dhea] 1 cap PO DAILY 02/09/21 02/09/21 Quercetin Dihydrate 1 cap PO DAILY 02/09/21 02/09/21 Ramipril [Altace] 10 mg PO DAILY 02/09/21 02/09/21 Ubidecarenone [Co Q-10] 30 mg PO TID 02/09/21 02/09/21 Vit B Complex/Zinc/Manganese 1 each PO DAILY 02/09/21 02/09/21 [Eldertonic Liquid] Zolpidem Tartrate [Ambien] 5 mg PO QPM 02/09/21 02/09/21 levOCARNitine [Levocarnitine] 1 tab PO DAILY 02/09/21 02/09/21 metFORMIN [Glucophage] 500 mg PO BID 02/09/21 02/09/21 methocarbamoL [Methocarbamol] 500 mg PO TID PRN 02/09/21 02/09/21 traMADol [Ultram] 50 mg PO TID PRN 02/09/21 02/09/21 - Allergies Allergies/Adverse Reactions: Allergies Allergy/AdvReac Type Severity Reaction Status Date / Time Sulfa (Sulfonamide AdvReac Rash Verified 12/27/20 14:55 Antibiotics) Review of Systems - Constitutional Constitutional: reports: Fatigue (persistent), Weakness, Weight gain. denies: Fever, Chills - Eyes Eyes: reports: Corrective lenses - Cardiovascular Cardiovascular: reports: Exertional dyspnea, Decr. exercise tolerance - Respiratory Respiratory: denies: SOB at rest - Gastrointestinal Gastrointestinal: reports: Nausea, Vomiting (attributes to lap band), Reflux/heartburn, Poor appetite, Early satiety - Musculoskeletal Musculoskeletal: reports: Stiffness, Limited range of motion (left shoulder; right knee), Muscle weakness, Assistive devices (crutch/walker) - Integumentary Integumentary: reports: Dryness, Other (new trauma injury from cat; scratches on left thigh; hx of cath scratch fever) - Neurological Neurological: reports: General weakness, Abnormal gait - Psychiatric Psychiatric: reports: Depression, Anxiety. denies: Suicidal (has suicidal thoughts / no plan/ reports improved from last week) - Endocrine Endocrine: reports: Hypothyroidism - Hematologic/Lymphatic Hematologic/Lymph: reports: Recurrent infections (right knee) - All Other Systems All Other Systems: reports: Reviewed and negative Physical Exam - Vital Signs Temperature: 97.2 C Pulse Rate: 87 Respiratory Rate: 16 O2 Saturation: 94 Blood Pressure: 158/78 - Physical Exam General Appearance: positive: Alert, Moderate distress, Anxious Eyes Bilateral: positive: Normal inspection ENT: positive: No signs of dehydration Neck: positive: Trachea midline Cardiovascular: positive: Regular rate & rhythm Respiratory: positive: No respiratory distress, Breath sounds nml, Diminished in bases. negative: Wheezes Abdomen: positive: Obese Skin: positive: Wound (several deep red scratches on left thigh; currently localized response; some residual dried blood; drainage dry; not hot or erythemic; using mupirocin and monitoring) Extremities: positive: No pedal edema Neurologic/Psychiatric: positive: Oriented x3, Weakness, Depressed mood/affect Palliative Care - POLST Patient has POLST: No Pain: Pain worsening, Location (right knee / chronic lower back pain), Severity (6-9/10), Comment (sparsely using tramadol though dose get some relief) Tiredness/Fatigue: Severe (7-10) Drowsiness/Sedation: Moderate (4-6) Nausea: Mild (1-3) Anorexia: Mild (1-3) Dyspnea: Mild (1-3) Depression: Severe (7-10), Suidical ideation Anxiety: Moderate (4-6) Feelings of wellbeing/Perceived Quality of Life: Poor, Worsening Sleep: Sleeps poorly, Variable sleep pattern Constipation: No Performance Status: Patient has experienced a significant decline in her functional status since limited by her knee in November. She has 2 dogs that she needs to walk, she has difficulty with weightbearing her knee uses crutches to the house, unable to navigate the stairs at this point but has managed to meet her ADLs. She has concerns appropriately regarding acute phase of recovery, as well as help that she is going to need. Last time she recovered she went to a SNF, this time she would like to trial home health therapies. - Palliative Care Discussion: Patient was looking for resources, unfortunately patient has fairly significant care needs but a plan in place. She does have friends and family, and daughter will be providing support through acute surgical phase. Patient presents today with overwhelming depression, does have history including admission for depression, is getting support weekly from psychiatric nurse practitioner. She has had recent adjustments to her meds. Suspect given patient's story that she is having some PTSD from her significant experience in the past with her joint replacements, cumulative grief, as well as the overlay of the pandemic and isolation. Suicidal screen, patient does have suicidal thoughts but no plan, does identify reason not to follow through, did provide suicide prevention hotline number as well as encouraged her to reach out for her current supports. Patient with out definitive palliative care needs, agreed would be available if something were to develop. Patient has ACP planning in place, has multiple chronic illnesses but no life limiting at this time. Impression and Recommendations - Palliative Care Impression: This is a 75-year-old woman who has surgery schedule on 03/05 for her third knee replacement. She has had a series of misfortunes events both with her knee including sepsis and failure previously of joint, now to have hardware replaced again. Patient with significant concerns, suspect has triggered an exacerbation of her underlying major depressive disorder, patient has multiple chronic illnesses and is challenged by her complex social situation of isolation and living alone. Palliative care introduced available resources, no ACP planning needs, pain is acute in nature and has ongoing support through PCP as well as Psychiatric Nurse Pratitioner. Recommendations/Counseling Done: 1. Acute on chronic pain. Patient has tramadol 50 mg, is hesitant to use, in the context of concerns for chemical dependency. Patient with multiple medications, currently using CBD 25 mg 3 times daily, most often this is more appropriate for neuropathic pain, gabapentin 600 mg 3 times daily, topical diclofenac gel. Given the mechanical nature of her pain, encouraged to use brace more diligently, patient is aware of fall precautions, given lift assist handout. Encouraged to use the tramadol particularly proactively for preemptive pain management, given her pain escalates with activity or noted increase in the evenings. Given also the limited options, encouraged to use her diclofenac gel 3-4 times a day more consistently 2. Left thigh cat scratch. At this point in time does not appear inflamed, is using mupirocin, encouraged to monitor but appears localized response currently. Encouraged to cleanse with soap and water and apply mupirocin 2 times a day and notify PCP if signs or symptoms of erythema, drainage, or fever or chills. 3. Failed right knee hardware. [place] with pending surgery[place] to [place] health agencies recommended on admission to talk to buyer planner as limited in the context of how quick to respond. I will call [facility] and give them a heads up. Phone numbers provided for patient. Also reviewed her plan to transition outpatient therapy, currently again resources are limited encouraged to get prescription from orthopedist and get in the queue. 4. Major depressive disorder. Patient does present with exacerbation of depression, suspect may be triggered by her upcoming surgery and her difficult experiences previously in the context of PTSD. Counseling provided regarding screening for suicidality, suicide prevention line given, patient is able to identify resources for support including reaching out to friends, her psychiatric nurse practitioner, and follow-up with her daughters. Of note patient on multiple supplements, often can interfere with high doses of antidepressants, may want to revisit in the context of interactions. Patient h ealthcare belief model though does include supplements for cysts support. 5. Right breast lump. Patient has identified right breast lump, does have fibrotic breast tissue. Has had biopsies in the past, recommended she follow-up with mammogram and to not let this go for health maintenance. 6. Advanced care planning. Reports she does have advanced care documents in place, she has both her daughters sharing medical DPOA. Patient declines need for advanced care planning assistance. Thank you Dr. Gerard for the referral, patient does have complex and chronic health care needs, but no palliative care needs for ongoing support. I will leave her open through the next couple months in case she develops complications again regarding her surgery and needs further assistance with more aggressive pain management. She does have psychiatric nurse practitioner for support with her depression which is an overwhelming factor for her right now. 75 minutes with greater than 50% of this and in counseling regarding symptom management, support for anxiety and depression, coordination of care and anticipatory guidance
== END 2021-02-08 13:46 | disposition home or self-care (01) ==
LOC: PC 13:45
PROVIDERS: ATTEND Nurse Practitioner Adult Health
DX: Z51.5 Encounter for palliative care (principal); T84.84XA Pain due to internal orthopedic prosthetic devices, implants and grafts, initial encounter; G89.29 Other chronic pain; R45.851 Suicidal ideations; F32.9 Major depressive disorder, single episode, unspecified; R53.1 Weakness; R53.83 Other fatigue; S70.312A Abrasion, left thigh, initial encounter; N63.10 Unspecified lump in the right breast, unspecified quadrant; Z79.899 Other long term (current) drug therapy; Z79.02 Long term (current) use of antithrombotics/antiplatelets; Z74.09 Other reduced mobility; Z63.4 Disappearance and death of family member; Z63.79 Other stressful life events affecting family and household; Z60.2 Problems related to living alone; Z86.19 Personal history of other infectious and parasitic diseases
CPT/HCPCS: 99345

== ENCOUNTER 2021-05-10 14:33 | Emergency (ER) | payer MEDICARE ==
[2021-05-10 14:45] VITALS: BP 150/70
[2021-05-10] MEDS ORDERED: cephALEXin 250 MG CAPSULE PO STA (15:17)
--- NOTE | 2021-05-10 15:18 | ED Physician Documentation ---
PD HPI UPPER EXT INJURY - Stated complaint Stated Complaint: R MID FINGER PX - Chief complaint Chief Complaint: Ext Problem - History obtained from History obtained from: Patient - Additonal information Additional information: She is 2 days out from a carpal tunnel release on the right and at the same time had an old fracture of the right middle finger addressed which was rebroken and pinned. The dressing was quite tight now has increased pain and swelling in the finger. She is worried about the possibility of sepsis because she has had that before. No fevers or chills. 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) HEENT: Chronic vision loss Psych: Depression, Anxiety Musculoskeletal: Osteoarthritis, Fatigue, Chronic back pain, Other (right shoulder rotator cuff tear) - Past Surgical History Past Surgical History: No General: Bowel surgery (colectomy), Hiatal hernia repair, Other (gastric banding ) Ortho: Hip replacement, Knee replacement, Spine surgery (cervical fusion), Other (multiple surg on knee [id number]; sepsis) - Present Medications Home Medications: Ambulatory Orders Medication Instructions Recorded Confirmed Acetaminophen [Tylenol] 650 mg PO Q4HR PRN MDD 3000 mg 02/09/21 02/09/21 Adrenal Cortex Porcine 1 cap PO DAILY 02/09/21 Albuterol Sulfate [Proair Hfa 2 puffs INH Q4HR PRN 02/09/21 02/09/21 Inhaler] Alprazolam [Xanax] 0.25 mg PO Q6HR PRN 02/09/21 02/09/21 Amlodipine Besylate [Norvasc] 2.5 mg PO DAILY MDD 5 mg evening 02/09/21 02/09/21 if b/p > 150 Ascorbic Acid [Vitamin C with Eliana 500 mg PO DAILY 02/09/21 02/09/21 Hips] Atorvastatin [Lipitor] 10 mg PO QPM 02/09/21 02/09/21 Beclomethasone 40 Mcg [Qvar 40] 1 puffs INH BID 02/09/21 02/09/21 Bupropion HCl [Wellbutrin Xl] 450 mg PO DAILY 02/09/21 02/09/21 Calcium Citrate/Vitamin D3 1 cap PO DAILY 02/09/21 02/09/21 [Citracal-D3 200Mg-250 Unit Tab] Cbd 25 mg PO TID 02/09/21 Cholecalciferol [Vitamin D3] 5,000 unit PO DAILY 02/09/21 02/09/21 Chromium Picolinate 1 tab PO DAILY 02/09/21 02/09/21 Clopidogrel [Plavix] 75 mg PO DAILY 02/09/21 02/09/21 Diclofenac Sodium [Voltaren 40 mg TOP QID PRN 02/09/21 02/09/21 Arthritis Pain] Fluticasone [Flonase] 1 inh HECTOR BID PRN 02/09/21 02/09/21 Gabapentin [Neurontin] 600 mg PO TID 02/09/21 02/09/21 [place] 1 cap PO DAILY 02/09/21 Horse [place] 1 tab PO DAILY 02/09/21 Ipratropium/Albuterol [Combivent 2 puffs INH Q4HR PRN 02/09/21 02/09/21 Respimat] Levothyroxine Sodium 50 mcg PO DAILY 02/09/21 02/09/21 [Levothyroxine] Liothyronine [Cytomel] 5 mcg PO DAILY 02/09/21 02/09/21 Magnesium 250 mg PO BID 02/09/21 02/09/21 Metoprolol Succinate [Toprol Xl] 25 mg PO DAILY 02/09/21 02/09/21 Multivitamin [Theragran] 1 tab PO DAILY 02/09/21 02/09/21 [place]-3 Fatty Acids [Fish Oil 1,000 mg PO DAILY 02/09/21 02/09/21 Concentrate] Omeprazole Magnesium 20 mg PO DAILY 02/09/21 02/09/21 Prasterone (Dhea) [Dhea] 1 cap PO DAILY 02/09/21 02/09/21 Quercetin Dihydrate 1 cap PO DAILY 02/09/21 02/09/21 Ramipril [Altace] 10 mg PO DAILY 02/09/21 02/09/21 Ubidecarenone [Co Q-10] 30 mg PO TID 02/09/21 02/09/21 Vit B Complex/Zinc/Manganese 1 each PO DAILY 02/09/21 02/09/21 [Eldertonic Liquid] Zolpidem Tartrate [Ambien] 5 mg PO QPM 02/09/21 02/09/21 levOCARNitine [Levocarnitine] 1 tab PO DAILY 02/09/21 02/09/21 metFORMIN [Glucophage] 500 mg PO BID 02/09/21 02/09/21 methocarbamoL [Methocarbamol] 500 mg PO TID PRN 02/09/21 02/09/21 traMADol [Ultram] 50 mg PO TID PRN 02/09/21 02/09/21 cephALEXin [Keflex] 500 mg PO Q6H #28 cap 05/10/21 - Allergies Allergies/Adverse Reactions: Allergies Allergy/AdvReac Type Severity Reaction Status Date / Time Sulfa (Sulfonamide AdvReac Rash Verified 05/10/21 14:45 Antibiotics) - Social History Does the pt smoke?: No Smoking Status: Never smoker Does the pt drink ETOH?: No Does the pt have substance abuse?: No - Immunizations Immunizations are current?: Yes - POLST Patient has POLST: No PD ED PE NORMAL - Vitals Vital signs reviewed: Yes - General General: Alert and oriented X 3, No acute distress - Extremities Extremities: Other (She has a surgical incision which is clean dry and intact on the dorsal surface of the right middle finger at the level of the DIP with moderate surrounding swelling and potentially some warmth. No drainage.) - Neuro Neuro: Alert and oriented X 3, Normal speech Results - Vitals Vitals: Vital Signs - 24 hr 05/10/21 14:40 Temperature 36.3 C L Heart Rate 69 Respiratory 16 Rate Blood Pressure 150/70 H O2 Saturation 98 Oxygen O2 Source Room air PD MEDICAL DECISION MAKING - ED course ED course: The wound was cleansed and redressed. I do not think there is an infection at this juncture but out of abundance of caution she is placed on Keflex pending follow-up with her surgeon on Thursday. Departure - Departure Disposition: 01 Home, Self Care Clinical Impression: Post-operative pain Condition: Good Record reviewed to determine appropriate education?: Yes Instructions: ED Wound Check Post Op No Infec Prescriptions: cephALEXin [Keflex] 500 mg PO Q6H #28 cap Comments: Prescription sent electronically to [facility] in [place]. Keep it elevated. Follow-up with your surgeon on Thursday as scheduled. Return for new or worsening symptoms.
== END 2021-05-10 15:25 | disposition home or self-care (01) ==
LOC: ED 14:33
DX: G89.18 Other acute postprocedural pain (principal); I10 Essential (primary) hypertension
CPT/HCPCS: 99282; 99283; A9270

== ENCOUNTER 2022-04-17 13:58 | Outpatient (CLI) | payer MEDICARE ==
[2022-04-17 20:03] LABS: BASOPHILS # (AUTO) 0.1 10^3/uL (0.0-0.1); BASOPHILS % (AUTO) 0.4 %; EOSINOPHILS # (AUTO) 0.1 10^3/uL (0.0-0.7); EOSINOPHILS % (AUTO) 0.8 %; HCT - HEMATOCRIT 37.8 % (37.0-47.0); LYMPHOCYTES # (AUTO) 2.7 10^3/uL (1.5-3.5); LYMPHOCYTES % (AUTO) 20.7 %; MEAN CORPUSCULAR HEMOGLOBIN 30.2 pg (27.0-31.0); MEAN CORPUSCULAR HGB CONC 31.7 g/dL (32.0-36.0); MEAN CORPUSCULAR VOLUME 95.2 fL (81.0-99.0); MEAN PLATELET VOLUME 10.9 fL (7.9-10.8); MONOCYTES # (AUTO) 0.9 10^3/uL (0.0-1.0); MONOCYTES % (AUTO) 6.9 %; NEUTROPHILS # (AUTO) 9.3 10^3/uL (1.5-6.6); NEUTROPHILS % (AUTO) 70.7 %; PLT - PLATELET COUNT 293 10^3/uL (130-450); RED BLOOD COUNT 3.97 10^6/uL (4.20-5.40); RED CELL DISTRIBUTION WIDTH 13.3 % (12.0-15.0); WHITE BLOOD COUNT 13.1 x10^3/uL (4.8-10.8)
[2022-04-17 20:20] LABS: ALBUMIN 3.6 g/dL (3.2-5.5); ALBUMIN/GLOBULIN RATIO 1.3 (1.0-2.2); BILIRUBIN,TOTAL 0.8 mg/dL (0.2-1.0); CALCIUM 8.9 mg/dL (8.5-10.3); CREATININE 0.9 mg/dL (0.4-1.0); POTASSIUM 4.1 mmol/L (3.5-5.0); TOTAL PROTEIN 6.4 g/dL (6.7-8.2)
== END 2022-04-17 13:59 | disposition home or self-care (01) ==
LOC: LAB.S 13:58
PROVIDERS: ATTEND Family Medicine
DX: D72.829 Elevated white blood cell count, unspecified (principal); R06.02 Shortness of breath; R05.3 Chronic cough
CPT/HCPCS: 36415; 80053; 85025

== ENCOUNTER 2022-05-17 17:01 | Emergency (ER) | payer MEDICARE ==
--- NOTE | 2022-05-17 17:34 | ED Physician Documentation ---
PD HPI DYSPNEA - Stated complaint Stated Complaint: HIGH BP/HEADACHE - Chief complaint Chief Complaint: Cardiac - History obtained from History obtained from: Patient - Additional information Additional information: 76-year-old woman with history of hypertension and asthma was hospitalized about a month ago at [facility] for respiratory distress. Despite being on ramipril for years they felt that her ramipril was potentially the cause of her more acute cough and it was discontinued. Since then she has been having fluctuating and generally elevated blood pressures and she started her ramipril again yesterday. Despite that earlier today her blood pressure was 207/101 and she has some chest tightness, shortness of breath and pitting edema. She did take 40 mg of Lasix prior to arrival which has improved said edema. Notes that her usual weight is about 255 and currently she is at 273. 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) HEENT: Chronic vision loss Psych: Depression, Anxiety Musculoskeletal: Osteoarthritis, Fatigue, Chronic back pain, Other (right shoulder rotator cuff tear) - Past Surgical History Past Surgical History: No General: Bowel surgery (colectomy), Hiatal hernia repair, Other (gastric banding) Ortho: Hip replacement, Knee replacement, Spine surgery (cervical fusion), Other (multiple surg on knee [id number]; sepsis) - Present Medications Home Medications: Ambulatory Orders Medication Instructions Recorded Confirmed Acetaminophen [Tylenol] 650 mg PO Q4HR PRN MDD 3000 mg 02/09/21 02/09/21 Adrenal Cortex Porcine 1 cap PO DAILY 02/09/21 Albuterol Sulfate [Proair Hfa 2 puffs INH Q4HR PRN 02/09/21 02/09/21 Inhaler] Alprazolam [Xanax] 0.25 mg PO Q6HR PRN 02/09/21 05/17/22 Amlodipine Besylate [Norvasc] 2.5 mg PO DAILY MDD 5 mg evening 02/09/21 05/17/22 if b/p > 150 Ascorbic Acid [Vitamin C with Eliana 500 mg PO DAILY 02/09/21 02/09/21 Hips] Atorvastatin [Lipitor] 10 mg PO QPM 02/09/21 02/09/21 Beclomethasone 40 Mcg [Qvar 40] 1 puffs INH BID 02/09/21 02/09/21 Bupropion HCl [Wellbutrin Xl] 450 mg PO DAILY 02/09/21 05/17/22 Calcium Citrate/Vitamin D3 1 cap PO DAILY 02/09/21 02/09/21 [Citracal-D3 200Mg-250 Unit Tab] Cbd 25 mg PO TID 02/09/21 Cholecalciferol [Vitamin D3] 5,000 unit PO DAILY 02/09/21 02/09/21 Chromium Picolinate 1 tab PO DAILY 02/09/21 02/09/21 Clopidogrel [Plavix] 75 mg PO DAILY 02/09/21 05/17/22 Diclofenac Sodium [Voltaren 40 mg TOP QID PRN 02/09/21 02/09/21 Arthritis Pain] Fluticasone [Flonase] 1 inh HECTOR BID PRN 02/09/21 02/09/21 Gabapentin [Neurontin] 600 mg PO TID 02/09/21 05/17/22 [place] 1 cap PO DAILY 02/09/21 [place] 1 tab PO DAILY 02/09/21 Ipratropium/Albuterol [Combivent 2 puffs INH Q4HR PRN 02/09/21 02/09/21 Respimat] Levothyroxine Sodium 50 mcg PO DAILY 02/09/21 05/17/22 [Levothyroxine] Liothyronine [Cytomel] 5 mcg PO DAILY 02/09/21 02/09/21 Magnesium 250 mg PO BID 02/09/21 02/09/21 Metoprolol Succinate [Toprol Xl] 25 mg PO DAILY 02/09/21 02/09/21 Multivitamin [Theragran] 1 tab PO DAILY 02/09/21 02/09/21 [place]-3 Fatty Acids [Fish Oil 1,000 mg PO DAILY 02/09/21 02/09/21 Concentrate] Omeprazole Magnesium 20 mg PO DAILY 02/09/21 02/09/21 Prasterone (Dhea) [Dhea] 1 cap PO DAILY 02/09/21 02/09/21 Quercetin Dihydrate 1 cap PO DAILY 02/09/21 02/09/21 Ramipril [Altace] 10 mg PO DAILY 02/09/21 05/17/22 Ubidecarenone [Co Q-10] 30 mg PO TID 02/09/21 02/09/21 Vit B Complex/Zinc/Manganese 1 each PO DAILY 02/09/21 02/09/21 [Eldertonic Liquid] levOCARNitine [Levocarnitine] 1 tab PO DAILY 02/09/21 02/09/21 metFORMIN [Glucophage] 500 mg PO BID 02/09/21 02/09/21 methocarbamoL [Methocarbamol] 500 mg PO TID PRN 02/09/21 02/09/21 traMADol [Ultram] 50 mg PO TID PRN 02/09/21 02/09/21 Furosemide [Lasix] 20 mg PO DAILY 05/17/22 05/17/22 Metoprolol Succinate [Toprol Xl] 25 mg PO BID 05/17/22 05/17/22 traZODone [Desyrel] 75 mg PO HS 05/17/22 05/17/22 - Allergies Allergies/Adverse Reactions: Allergies Allergy/AdvReac Type Severity Reaction Status Date / Time Sulfa (Sulfonamide AdvReac Rash Verified 05/17/22 17:17 Antibiotics) - Social History Does the pt smoke?: No Smoking Status: Never smoker Does the pt drink ETOH?: No Does the pt have substance abuse?: No - Immunizations Immunizations are current?: Yes - POLST Patient has POLST: No PD ED PE NORMAL - Vitals Vital signs reviewed: Yes - General General: Alert and oriented X 3, No acute distress - Neck Neck: Supple, no meningeal sign, No bony TTP, No bruit - Cardiac Cardiac: RRR, No murmur - Respiratory Respiratory: No respiratory distress, Other (Mild expiratory wheezes, no focal findings, nonlabored) - Back Back: No CVA TTP, No spinal TTP - Derm Derm: Normal color, Warm and dry - Extremities Extremities: No calf tenderness / cord, Other (1+ pitting pedal edema up to mid calf) - Neuro Neuro: Alert and oriented X 3, Normal speech Results - Vitals Vitals: Vital Signs - 24 hr 05/17/22 05/17/22 17:07 17:51 Temperature 36.9 C Heart Rate 77 74 Respiratory 20 18 Rate Blood Pressure 150/67 H 131/59 H O2 Saturation 98 99 Oxygen O2 Source Room air - EKG (time done) 1737 Rate: Rate (enter#) (70) Rhythm: NSR [place]: Normal Intervals: Prolonged NM QRS: Normal, Low voltage Ischemia: Non specific changes - Labs Labs: Laboratory Tests 05/17/22 05/17/22 05/17/22 17:39 17:39 17:39 WBC 9.4 RBC 4.00 L Hgb 11.8 L Hct 37.2 MCV 93.0 MCH 29.5 MCHC 31.7 L RDW 12.7 Plt Count 266 MPV 10.3 Neut # (Auto) 6.3 Lymph # (Auto) 2.0 [place] # (Auto) 0.9 Eos # (Auto) 0.2 Baso # (Auto) 0.1 Absolute Nucleated RBC 0.00 Nucleated RBC % 0.0 Sodium 137 Potassium 3.6 Chloride 98 L Carbon Dioxide 28 Anion Gap 11.0 BUN 17 Creatinine 0.8 Estimated GFR (MDRD) 70 L Glucose 91 Calcium 9.0 Magnesium 2.1 Total Bilirubin 0.7 AST 25 ALT 28 Alkaline Phosphatase 55 B-Natriuretic Peptide 29 Total Protein 7.0 Albumin 4.1 Globulin 2.9 Albumin/Globulin Ratio 1.4 PD Medical Decision Making - ED course ED course: 76-year-old woman presents for the evaluation of hypertension. No pertinent positive findings here, CBC shows mild anemia, CMP normal, BNP negative, chest x-ray without heart failure. Radiologist noted potentially an opacity at the right lung base but this would not corroborate any current symptoms. We compared her wrist blood pressure cuff to a bicep cuff here and hers was reliably approximately 50 points higher than ours and much more variable. She was advised to get a bicep cuff. Departure - Departure Disposition: Home, Self Care Clinical Impression: Elevated blood pressure reading Condition: Good Record reviewed to determine appropriate education?: Yes Instructions: ED HTN Established Comments: As discussed, your blood pressure cuff seems to read skin is significantly h igher than a bicep cuff. Would recommend not using a wrist cuff and finding a bicep cuff for monitoring of blood pressure. Continue current medications including ramipril, metoprolol, amlodipine. Call your doctor to arrange a follow-up appointment, make the next available appointment. In the interim, return anytime if worse or if new symptoms develop.
[2022-05-17 17:42] LABS: BASOPHILS # (AUTO) 0.1 10^3/uL (0.0-0.1); BASOPHILS % (AUTO) 0.7 %; EOSINOPHILS # (AUTO) 0.2 10^3/uL (0.0-0.7); EOSINOPHILS % (AUTO) 1.8 %; HCT - HEMATOCRIT 37.2 % (37.0-47.0); HGB - HEMOGLOBIN 11.8 g/dL (12.0-16.0); LYMPHOCYTES % (AUTO) 20.7 %; MEAN CORPUSCULAR HEMOGLOBIN 29.5 pg (27.0-31.0); MEAN CORPUSCULAR HGB CONC 31.7 g/dL (32.0-36.0); MEAN PLATELET VOLUME 10.3 fL (7.9-10.8); MONOCYTES # (AUTO) 0.9 10^3/uL (0.0-1.0); MONOCYTES % (AUTO) 9.4 %; NEUTROPHILS # (AUTO) 6.3 10^3/uL (1.5-6.6); NEUTROPHILS % (AUTO) 67.2 %; PLT - PLATELET COUNT 266 10^3/uL (130-450); RED CELL DISTRIBUTION WIDTH 12.7 % (12.0-15.0); WHITE BLOOD COUNT 9.4 x10^3/uL (4.8-10.8)
[2022-05-17 17:55] LABS: ALBUMIN 4.1 g/dL (3.2-5.5); ALBUMIN/GLOBULIN RATIO 1.4 (1.0-2.2); BILIRUBIN,TOTAL 0.7 mg/dL (0.2-1.0); CREATININE 0.8 mg/dL (0.4-1.0); MAGNESIUM 2.1 mg/dL (1.7-2.8); POTASSIUM 3.6 mmol/L (3.5-5.0)
--- NOTE | 2022-05-17 18:08 | XRAY Report ---
PROCEDURE: Chest 1 View X-Ray INDICATIONS: dyspnea TECHNIQUE: One view of the chest was acquired. COMPARISON: 06/27/2019 FINDINGS: Surgical changes and devices: None. Lungs and pleura: Mild opacity at the right lung base. Lung volumes are low. Mediastinum: Borderline cardiomegaly Bones and chest wall: No suspicious bony lesions. Overlying soft tissues appear unremarkable. IMPRESSION: Mild opacity at the right lung base could represent early airspace disease or atelectasis. Consider f uture imaging surveillance to assess for resolution. Reviewed by: Nitesh Pugh MD on 05/17/2022 5:06 PM [facility] Approved by: Nitesh Pugh MD on 05/17/2022 5:06 PM [facility] Station ID: [id number]
[2022-05-17 18:20] VITALS: BP 133/60
== END 2022-05-17 18:34 | disposition home or self-care (01) ==
LOC: ED 17:01
DX: I10 Essential (primary) hypertension (principal)
CPT/HCPCS: 36415; 80053; 83735; 83880; 85025; 93005; 99282; 99283

== ENCOUNTER 2022-06-10 14:58 | Outpatient (CLI) | payer MEDICARE, OTHER | END 2022-06-10 14:59 | disposition home or self-care (01) | LOC: LAB.S 14:58 | PROVIDERS: ATTEND Otolaryngology | DX: R68.2 Dry mouth, unspecified (principal); E03.9 Hypothyroidism, unspecified; R53.83 Other fatigue; D64.9 Anemia, unspecified; R73.09 Other abnormal glucose; I10 Essential (primary) hypertension; E78.5 Hyperlipidemia, unspecified ==

== ENCOUNTER 2022-06-11 11:44 | Outpatient (CLI) | payer MEDICARE, OTHER ==
[2022-06-11 14:40] LABS: BASOPHILS # (AUTO) 0.1 10^3/uL (0.0-0.1); BASOPHILS % (AUTO) 1.2 %; EOSINOPHILS # (AUTO) 0.2 10^3/uL (0.0-0.7); EOSINOPHILS % (AUTO) 3.7 %; HCT - HEMATOCRIT 36.4 % (37.0-47.0); HGB - HEMOGLOBIN 11.4 g/dL (12.0-16.0); LYMPHOCYTES # (AUTO) 1.5 10^3/uL (1.5-3.5); LYMPHOCYTES % (AUTO) 23.1 %; MEAN CORPUSCULAR HEMOGLOBIN 28.7 pg (27.0-31.0); MEAN CORPUSCULAR HGB CONC 31.3 g/dL (32.0-36.0); MEAN CORPUSCULAR VOLUME 91.7 fL (81.0-99.0); MEAN PLATELET VOLUME 11.4 fL (7.9-10.8); MONOCYTES # (AUTO) 0.8 10^3/uL (0.0-1.0); MONOCYTES % (AUTO) 11.4 %; NEUTROPHILS % (AUTO) 60.4 %; PLT - PLATELET COUNT 253 10^3/uL (130-450); RED BLOOD COUNT 3.97 10^6/uL (4.20-5.40); RED CELL DISTRIBUTION WIDTH 13.2 % (12.0-15.0); WHITE BLOOD COUNT 6.6 x10^3/uL (4.8-10.8)
[2022-06-11 16:03] LABS: ALBUMIN 3.8 g/dL (3.2-5.5); ALBUMIN/GLOBULIN RATIO 1.4 (1.0-2.2); CREATININE 0.9 mg/dL (0.4-1.0); CRP HIGH SENSITIVITY 9.1 mg/L; TOTAL PROTEIN 6.5 g/dL (6.7-8.2)
[2022-06-11 16:12] LABS: THYROID STIMULATING HORMONE 3.39 uIU/mL (0.34-5.60)
[2022-06-11 16:14] LABS: FREE T3 2.76 pg/mL (2.5-3.9); FREE T4 (FREE THYROXINE) 0.89 ng/dL (0.58-1.64)
[2022-06-11 16:19] LABS: FERRITIN 15.7 ng/mL (11.0-306.8)
[2022-06-11 21:44] LABS: ESTIMATED AVERAGE GLUCOSE 137 mg/dL (70-100); HEMOGLOBIN A1c% 6.4 % (4.27-6.07)
[2022-06-12 17:09] LABS: SJOGREN'S ANTI-SS-A <0.2 AI (0.0-0.9); SJOGREN'S ANTI-SS-B <0.2 AI (0.0-0.9)
== END 2022-06-11 11:45 | disposition home or self-care (01) ==
LOC: LAB.S 11:44
PROVIDERS: ATTEND Family Medicine
DX: I10 Essential (primary) hypertension (principal); R68.2 Dry mouth, unspecified; E03.9 Hypothyroidism, unspecified; R53.83 Other fatigue; D64.9 Anemia, unspecified; R73.09 Other abnormal glucose; E78.5 Hyperlipidemia, unspecified
CPT/HCPCS: 36415; 80053; 82626; 82728; 83036; 83090; 83540; 84439; 84443; 84466; 84480; 84481; 84482; 85025; 86141; 86235

== ENCOUNTER 2022-08-20 13:05 | Outpatient (CLI) | payer MEDICARE, OTHER ==
--- NOTE | 2022-08-20 13:35 | XRAY Report ---
PROCEDURE: Chest 2 View X-Ray INDICATIONS: COUGH TECHNIQUE: 2 views of the chest were acquired. COMPARISON: Chest x-ray, 05/17/2022. FINDINGS: Surgical changes and devices: None. Lungs and pleura: Right lower lobe infiltrate suspicious for pneumonia. No pleural effusions or pneu mothorax. Mediastinum: Mediastinal contours are normal. Heart size is normal. Bones and chest wall: No suspicious bony abnormalities. Soft tissues appear unremarkable. IMPRESSION: Suspect right lower lobe pneumonia. Reviewed by: Shannon Hurtado MD on 08/20/2022 1:34 PM PDT Approved by: Shannon Hurtado MD on 08/20/2022 1:34 PM PDT Station ID: [id number]
== END 2022-08-20 13:06 | disposition home or self-care (01) ==
LOC: DI.S 13:05
PROVIDERS: ATTEND Family Medicine
DX: R05.9 Cough, unspecified (principal); R06.02 Shortness of breath

== ENCOUNTER 2022-09-01 10:02 | Outpatient (CLI) | payer MEDICARE, OTHER ==
--- NOTE | 2022-09-01 11:03 | XRAY Report ---
PROCEDURE: Chest 2 View X-Ray INDICATIONS: SOB,COUGH TECHNIQUE: 2 views of the chest were acquired. COMPARISON: 08/20/2022 FINDINGS: Surgical changes and devices: None. Lungs and pleura: Mild diffuse lung disease, with more focal opacity at the right lung base. Probabl e small effusions. Mediastinum: Borderline cardiomegaly P Bones and chest wall: No suspicious bony lesions. Overlying soft tissues appear unremarkable. IMPRESSION: Mild lung disease, similar to prior, with more focal infectious or inflammatory opacity at right lung base, also seen previously. Consider future imaging surveillance to assess for resolution. Reviewed by: Nitesh Pugh MD on 09/01/2022 11:02 AM PDT Approved by: Nitesh Pugh MD on 09/01/2022 11:02 AM PDT Station ID: [id number]
[2022-09-01 14:41] LABS: BASOPHILS # (AUTO) 0.1 10^3/uL (0.0-0.1); BASOPHILS % (AUTO) 0.4 %; EOSINOPHILS # (AUTO) 0.1 10^3/uL (0.0-0.7); EOSINOPHILS % (AUTO) 0.2 %; HCT - HEMATOCRIT 37.8 % (37.0-47.0); HGB - HEMOGLOBIN 11.7 g/dL (12.0-16.0); LYMPHOCYTES # (AUTO) 2.1 10^3/uL (1.5-3.5); LYMPHOCYTES % (AUTO) 9.1 %; MEAN CORPUSCULAR HEMOGLOBIN 28.4 pg (27.0-31.0); MEAN CORPUSCULAR VOLUME 91.7 fL (81.0-99.0); MEAN PLATELET VOLUME 10.3 fL (7.9-10.8); MONOCYTES # (AUTO) 2.1 10^3/uL (0.0-1.0); MONOCYTES % (AUTO) 9.3 %; NEUTROPHILS # (AUTO) 18.3 10^3/uL (1.5-6.6); NEUTROPHILS % (AUTO) 80.6 %; PLT - PLATELET COUNT 509 10^3/uL (130-450); RED BLOOD COUNT 4.12 10^6/uL (4.20-5.40); RED CELL DISTRIBUTION WIDTH 16.6 % (12.0-15.0); WHITE BLOOD COUNT 22.7 x10^3/uL (4.8-10.8)
[2022-09-01 15:19] LABS: SLIDE REVIEW? Indicated
[2022-09-01 15:24] LABS: DIFFERENTIAL COMMENT MANUAL=AUTO DIFF; PLATELET ESTIMATE, MANUAL NORMAL (130-450,000) (NORMAL); PLATELET MORPHOLOGY NORMAL APPEARANCE (NORMAL); RBC MORPHOLOGY (MULTIPLE) NORMAL APPEARANCE (NORMAL)
[2022-09-01 15:42] LABS: THYROID STIMULATING HORMONE 1.92 uIU/mL (0.34-5.60)
[2022-09-01 15:44] LABS: FREE T3 2.72 pg/mL (2.5-3.9); FREE T4 (FREE THYROXINE) 1.07 ng/dL (0.58-1.64)
[2022-09-01 15:49] LABS: FERRITIN 87.9 ng/mL (11.0-306.8)
[2022-09-01 15:53] LABS: % IRON SATURATION 7 % (20-50); ALBUMIN 3.5 g/dL (3.2-5.5); ALKALINE PHOSPHATASE 48 IU/L (42-121); ALT ALANINE AMINOTRANSFERASE 27 IU/L (10-60); AST ASPARTATE AMINOTRANSFERASE 23 IU/L (10-42); BILIRUBIN,TOTAL 0.7 mg/dL (0.2-1.0); BUN - BLOOD UREA NITROGEN 15 mg/dL (6-20); CALCIUM 8.8 mg/dL (8.5-10.3); CARBON DIOXIDE - CO2 28 mmol/L (21-32); CHLORIDE 102 mmol/L (101-111); CHOL/HDL RATIO 2.6 (<4.4); CHOLESTEROL 111 mg/dL; CREATININE 0.9 mg/dL (0.4-1.0); GFR - MDRD 61 (>89); GLUCOSE 107 mg/dL (70-100); HDL CHOLESTEROL 43 mg/dL; IRON 21 ug/dL (28-170); LDL CHOLESTEROL,CALCULATED 56 mg/dL; LDL/HDL RATIO 1.3 (<4.4); POTASSIUM 4.1 mmol/L (3.5-5.0); SODIUM 132 mmol/L (135-145); TOTAL IRON BINDING CAPACITY 316 ug/dL (250-450); TOTAL PROTEIN 6.9 g/dL (6.7-8.2); TRANSFERRIN 226 mg/dL (192-382); TRIGLYCERIDES 61 mg/dL; VLDL CHOLESTEROL 12 mg/dL
[2022-09-01 21:48] LABS: ESTIMATED AVERAGE GLUCOSE 120 mg/dL (70-100); HEMOGLOBIN A1c% 5.8 % (4.27-6.07)
[2022-09-02 07:10] LABS: VITAMIN D 25-HYDROXY 58.8 ng/mL (30.0-100.0)
== END 2022-09-01 10:03 | disposition home or self-care (01) ==
LOC: DI.S 10:02
PROVIDERS: ATTEND Family Medicine
DX: R05.9 Cough, unspecified (principal); R06.02 Shortness of breath; J98.4 Other disorders of lung; E03.9 Hypothyroidism, unspecified; R53.83 Other fatigue; E11.9 Type 2 diabetes mellitus without complications; E66.01 Morbid (severe) obesity due to excess calories; I10 Essential (primary) hypertension; D64.9 Anemia, unspecified; E78.5 Hyperlipidemia, unspecified; E55.9 Vitamin D deficiency, unspecified
CPT/HCPCS: 36415; 80053; 80061; 82306; 82728; 83036; 83540; 83721; 84439; 84443; 84466; 84480; 84481; 84482; 85025

== ENCOUNTER 2023-02-06 15:49 | Outpatient (CLI) | payer MEDICARE, OTHER ==
--- NOTE | 2023-02-06 17:15 | XRAY Report ---
PROCEDURE: Cervical Spine 2 View INDICATIONS: NECK PAIN TECHNIQUE: 4 view(s) of the cervical spine were acquired. COMPARISON: None. FINDINGS: Bones: partially seen fusion hardware at C6-C7. There is straightening of normal cervical lordosis. 5 mm of anterolisthesis of C4 on C5. No traumatic subluxation or acute vertebral body height loss iden tified in the cervical spine. C1 on C2 alignment is within normal limits on the odontoid view. Overal l moderate degenerative changes. Soft tissues: No suspicious calcifications. Possible carotid bulb calcifications. IMPRESSION: Overall moderate degenerative changes. 5 mm of C4 on C5 anterolisthesis may also be degenerative. If there is high concern for further derangement, consider MRI evaluation. Straightening of normal cervical lordosis. Partially seen C6 and C7 fusion changes. Reviewed by: Nitesh Pugh MD on 02/06/2023 5:14 PM PDT Approved by: Nitesh Pugh MD on 02/06/2023 5:14 PM PDT Station ID: [id number]
== END 2023-02-06 15:50 | disposition home or self-care (01) ==
LOC: DI.S 15:49
PROVIDERS: ATTEND Family Medicine
DX: M47.812 Spondylosis without myelopathy or radiculopathy, cervical region (principal); Z98.1 Arthrodesis status; M43.12 Spondylolisthesis, cervical region

== ENCOUNTER 2023-02-18 13:42 | Outpatient (CLI) | payer MEDICARE, OTHER ==
[2023-02-18 19:43] LABS: BASOPHILS # (AUTO) 0.1 10^3/uL (0.0-0.1); BASOPHILS % (AUTO) 1.1 %; EOSINOPHILS # (AUTO) 0.2 10^3/uL (0.0-0.7); EOSINOPHILS % (AUTO) 2.4 %; HGB - HEMOGLOBIN 13.4 g/dL (12.0-16.0); LYMPHOCYTES # (AUTO) 1.4 10^3/uL (1.5-3.5); LYMPHOCYTES % (AUTO) 18.4 %; MEAN CORPUSCULAR HGB CONC 31.9 g/dL (32.0-36.0); MEAN CORPUSCULAR VOLUME 97.2 fL (81.0-99.0); MEAN PLATELET VOLUME 11.3 fL (7.9-10.8); MONOCYTES # (AUTO) 0.9 10^3/uL (0.0-1.0); MONOCYTES % (AUTO) 12.3 %; NEUTROPHILS # (AUTO) 4.9 10^3/uL (1.5-6.6); NEUTROPHILS % (AUTO) 65.5 %; PLT - PLATELET COUNT 289 10^3/uL (130-450); RED BLOOD COUNT 4.32 10^6/uL (4.20-5.40); RED CELL DISTRIBUTION WIDTH 12.6 % (12.0-15.0); WHITE BLOOD COUNT 7.4 x10^3/uL (4.8-10.8)
[2023-02-18 20:01] LABS: ESTIMATED AVERAGE GLUCOSE 111 mg/dL (70-100); HEMOGLOBIN A1c% 5.5 % (4.27-6.07)
[2023-02-18 20:05] LABS: CRP HIGH SENSITIVITY 26.52 mg/L
[2023-02-18 20:06] LABS: BUN - BLOOD UREA NITROGEN 14 mg/dL (6-20); CALCIUM 9.5 mg/dL (8.5-10.3); CARBON DIOXIDE - CO2 25 mmol/L (21-32); CHLORIDE 107 mmol/L (101-111); CHOL/HDL RATIO 2.3 (<4.4); CHOLESTEROL 121 mg/dL; CREATININE 0.8 mg/dL (0.6-1.3); GFR - MDRD 70 (>89); GLUCOSE 112 mg/dL (74-104); HDL CHOLESTEROL 53 mg/dL; LDL CHOLESTEROL,CALCULATED 43 mg/dL; LDL/HDL RATIO 0.8 (<4.4); POTASSIUM 4.3 mmol/L (3.5-4.5); SODIUM 139 mmol/L (135-145); TRIGLYCERIDES 127 mg/dL (48-352); VLDL CHOLESTEROL 25 mg/dL
[2023-02-18 20:10] LABS: CREATININE,URINE 68.4 mg/dL; MICROALBUM/CREATININE RATIO,UR 10.2 ug/mg (<30.0); MICROALBUMIN,URINE 0.7 mg/dL
[2023-02-18 20:46] LABS: THYROID STIMULATING HORMONE 2.68 uIU/mL (0.34-5.60)
[2023-02-18 20:54] LABS: FERRITIN 66.1 ng/mL (11.0-306.8)
== END 2023-02-18 13:43 | disposition home or self-care (01) ==
LOC: LAB.S 13:42
PROVIDERS: ATTEND Family Medicine
DX: I10 Essential (primary) hypertension (principal); E11.9 Type 2 diabetes mellitus without complications; E03.9 Hypothyroidism, unspecified; R53.83 Other fatigue; Z85.3 Personal history of malignant neoplasm of breast; D64.9 Anemia, unspecified; E78.5 Hyperlipidemia, unspecified
CPT/HCPCS: 36415; 80048; 80061; 82043; 82570; 82626; 82728; 83036; 83090; 83540; 83721; 84439; 84443; 84466; 84480; 84481; 84482; 85025; 86141

== ENCOUNTER 2023-03-23 17:54 | Outpatient (CLI) | payer MEDICARE, OTHER ==
--- NOTE | 2023-03-23 18:47 | XRAY Report ---
PROCEDURE: Chest 2 View X-Ray INDICATIONS: HX OF LUNG SCARRING/SEVERELUNG DZ TECHNIQUE: 2 views of the chest were acquired. COMPARISON: Chest x-ray 09/01/2022. FINDINGS: Surgical changes and devices: None. Lungs and pleura: No pleural effusions or pneumothorax. Lungs are clear. Mediastinum: Mediastinal contours appear normal. Heart size is normal. Bones and chest wall: No suspicious bony lesions. Overlying soft tissues appear unremarkable. IMPRESSION: No acute cardiopulmonary process. Resolution of right lung base opacities. No focal pulmonary consoli dations. Reviewed by: Hasmukh Horton MD on 03/23/2023 6:46 PM PDT Approved by: Hasmukh Horton MD on 03/23/2023 6:46 PM PDT Station ID: [id number]
== END 2023-03-23 17:55 | disposition home or self-care (01) ==
LOC: DI.S 17:54
PROVIDERS: ATTEND Family Medicine
DX: Z87.01 Personal history of pneumonia (recurrent) (principal); R05.9 Cough, unspecified; R06.00 Dyspnea, unspecified

== ENCOUNTER 2023-04-01 10:22 | Outpatient (CLI) | payer MEDICARE, OTHER ==
--- NOTE | 2023-04-01 11:26 | XRAY Report ---
PROCEDURE: Lumbar Spine 2 View INDICATIONS: SEVERE SUDDEN ONSET LBP TECHNIQUE: 3 views of the lumbar spine were acquired. COMPARISON: None. FINDINGS: Bones: Multilevel degenerative changes. No vertebral body height loss. Anterior osteophytes at multip le levels. Facet arthrosis in the lower lumbar spine with grade 1 anterolisthesis of L4-5. Dextroscol iosis of the thoracolumbar spine with the left apex at L3. Mild degenerative changes of the sacroilia c joints. Status post left hip replacement. Soft tissues: Overlying bowel gas pattern is normal. No suspicious soft tissue calcifications. IMPRESSION: 1. Multilevel severe degenerative changes and facet arthrosis as detailed above. 2. No acute abnormality. 3. Dextroscoliosis of the lumbar spine. Reviewed by: Forrest Slaughter on 04/01/2023 11:25 AM PDT Approved by: Forrest Slaughter on 04/01/2023 11:25 AM PDT Station ID: [id number]
== END 2023-04-01 10:23 | disposition home or self-care (01) ==
LOC: DI.S 10:22
PROVIDERS: ATTEND Family Medicine
DX: M47.816 Spondylosis without myelopathy or radiculopathy, lumbar region (principal)

== ENCOUNTER 2023-06-30 14:24 | Outpatient (CLI) | payer MEDICARE, OTHER ==
[2023-06-30 20:24] LABS: ALBUMIN 4.2 g/dL (3.2-5.5); ALBUMIN/GLOBULIN RATIO 1.6 (1.0-2.2); BILIRUBIN,TOTAL 0.6 mg/dL (0.2-1.0); CALCIUM 9.5 mg/dL (8.5-10.3); CREATININE 0.9 mg/dL (0.6-1.3); POTASSIUM 4.2 mmol/L (3.5-4.5); TOTAL PROTEIN 6.8 g/dL (6.4-8.9)
[2023-06-30 20:25] LABS: ESTIMATED AVERAGE GLUCOSE 108 mg/dL (70-100); HEMOGLOBIN A1c% 5.4 % (4.27-6.07)
== END 2023-06-30 14:25 | disposition home or self-care (01) ==
LOC: LAB.S 14:24
PROVIDERS: ATTEND Family Medicine
DX: E11.9 Type 2 diabetes mellitus without complications (principal)
CPT/HCPCS: 36415; 80053; 83036

== ENCOUNTER 2023-08-11 13:14 | Outpatient (CLI) | payer MEDICARE, OTHER ==
[2023-08-11 20:15] LABS: BASOPHILS # (AUTO) 0.1 10^3/uL (0.0-0.1); BASOPHILS % (AUTO) 0.7 %; EOSINOPHILS # (AUTO) 0.3 10^3/uL (0.0-0.7); EOSINOPHILS % (AUTO) 4.5 %; HCT - HEMATOCRIT 34.3 % (37.0-47.0); HGB - HEMOGLOBIN 10.5 g/dL (12.0-16.0); LYMPHOCYTES # (AUTO) 0.9 10^3/uL (1.5-3.5); LYMPHOCYTES % (AUTO) 12.9 %; MEAN CORPUSCULAR HEMOGLOBIN 31.4 pg (27.0-31.0); MEAN CORPUSCULAR HGB CONC 30.6 g/dL (32.0-36.0); MEAN CORPUSCULAR VOLUME 102.7 fL (81.0-99.0); MEAN PLATELET VOLUME 11.2 fL (7.9-10.8); NEUTROPHILS # (AUTO) 4.8 10^3/uL (1.5-6.6); NEUTROPHILS % (AUTO) 67.3 %; PLT - PLATELET COUNT 332 10^3/uL (130-450); RED BLOOD COUNT 3.34 10^6/uL (4.20-5.40); RED CELL DISTRIBUTION WIDTH 14.5 % (12.0-15.0); WHITE BLOOD COUNT 7.1 x10^3/uL (4.8-10.8)
[2023-08-11 20:25] LABS: ALBUMIN 4.1 g/dL (3.2-5.5); ALBUMIN/GLOBULIN RATIO 1.5 (1.0-2.2); BILIRUBIN,TOTAL 0.9 mg/dL (0.2-1.0); CALCIUM 9.7 mg/dL (8.5-10.3); CREATININE 0.8 mg/dL (0.6-1.3); CRP HIGH SENSITIVITY 29.81 mg/L; MAGNESIUM 2.2 mg/dL (1.7-2.3); POTASSIUM 4.3 mmol/L (3.5-4.5); TOTAL PROTEIN 6.8 g/dL (6.4-8.9)
[2023-08-11 21:09] LABS: THYROID STIMULATING HORMONE 2.22 uIU/mL (0.34-5.60)
[2023-08-11 21:17] LABS: FERRITIN 141.5 ng/mL (11.0-306.8)
== END 2023-08-11 13:15 | disposition home or self-care (01) ==
LOC: LAB.S 13:14
PROVIDERS: ATTEND Family Medicine
DX: D64.9 Anemia, unspecified (principal); R53.83 Other fatigue; I10 Essential (primary) hypertension; E78.5 Hyperlipidemia, unspecified; E03.9 Hypothyroidism, unspecified
CPT/HCPCS: 36415; 80053; 82728; 83090; 83540; 83735; 84439; 84443; 84466; 84480; 84481; 84482; 85025; 86141

== ENCOUNTER 2023-10-07 12:19 | Emergency (ER) | payer MEDICARE, OTHER ==
[2023-10-07 12:36] VITALS: BP 148/62; O2SAT 97
[2023-10-07 12:43] LABS: RAPID STREP SCREEN Negative (Negative)
--- NOTE | 2023-10-07 13:16 | ED Physician Documentation ---
PD HPI URI - Stated complaint Stated Complaint: THROAT PX, SWELLING - Chief complaint Chief Complaint: Heent - History obtained from History obtained from: Patient - Additional information Additional information: Is a 77-year-old female with a history of A-fib on Eliquis presenting for evaluation of 2-day history of sore throat. She has been using acetaminophen as well as salt water gargles. She has been tolerating p.o. intake. No fevers. No chest pain, cough or trouble breathing. Denies any known sick contacts or recent travel. Her [id number] granddaughter is coming this weekend so she was concerned she might have a strep infection. 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 HEENT: Chronic vision loss Psych: Depression, Anxiety Musculoskeletal: Osteoarthritis, Fatigue, Chronic back pain, Other - Past Surgical History Past Surgical History: No General: Bowel surgery, Hiatal hernia repair, Other Ortho: Hip replacement, Knee replacement, Spine surgery, Other - Present Medications Home Medications: Ambulatory Orders Medication Instructions Recorded Confirmed Acetaminophen [Tylenol] 650 mg PO Q4HR PRN MDD 3000 mg 02/09/21 02/09/21 Adrenal Cortex Porcine 1 cap PO DAILY 02/09/21 Albuterol Sulfate [Proair Hfa 2 puffs INH Q4HR PRN 02/09/21 02/09/21 Inhaler] Alprazolam [Xanax] 0.25 mg PO Q6HR PRN 02/09/21 05/17/22 Amlodipine Besylate [Norvasc] 2.5 mg PO DAILY MDD 5 mg evening 02/09/21 05/17/22 if b/p > 150 Ascorbic Acid [Vitamin C with Eliana 500 mg PO DAILY 02/09/21 02/09/21 Hips] Atorvastatin [Lipitor] 10 mg PO QPM 02/09/21 02/09/21 Beclomethasone 40 Mcg [Qvar 40] 1 puffs INH BID 02/09/21 02/09/21 Calcium Citrate/Vitamin D3 1 cap PO DAILY 02/09/21 02/09/21 [Citracal-D3 200Mg-250 Unit Tab] Cbd 25 mg PO TID 02/09/21 Cholecalciferol [Vitamin D3] 5,000 unit PO DAILY 02/09/21 02/09/21 Chromium Picolinate 1 tab PO DAILY 02/09/21 02/09/21 Clopidogrel [Plavix] 75 mg PO DAILY 02/09/21 05/17/22 Diclofenac Sodium [Voltaren 40 mg TOP QID PRN 02/09/21 02/09/21 Arthritis Pain] Fluticasone [Flonase] 1 inh HECTOR BID PRN 02/09/21 02/09/21 Gabapentin [Neurontin] 600 mg PO TID 02/09/21 05/17/22 [place] 1 cap PO DAILY 02/09/21 Horse [place] 1 tab PO DAILY 02/09/21 Ipratropium/Albuterol [Combivent 2 puffs INH Q4HR PRN 02/09/21 02/09/21 Respimat] Levothyroxine Sodium 50 mcg PO DAILY 02/09/21 05/17/22 [Levothyroxine] Liothyronine [Cytomel] 5 mcg PO DAILY 02/09/21 02/09/21 Magnesium 250 mg PO BID 02/09/21 02/09/21 Metoprolol Succinate [Toprol Xl] 25 mg PO DAILY 02/09/21 02/09/21 Multivitamin [Theragran] 1 tab PO DAILY 02/09/21 02/09/21 [place]-3 Fatty Acids [Fish Oil 1,000 mg PO DAILY 02/09/21 02/09/21 Concentrate] Omeprazole Magnesium 20 mg PO DAILY 02/09/21 02/09/21 Prasterone (Dhea) [Dhea] 1 cap PO DAILY 02/09/21 02/09/21 Quercetin Dihydrate 1 cap PO DAILY 02/09/21 02/09/21 Ramipril [Altace] 10 mg PO DAILY 02/09/21 05/17/22 Ubidecarenone [Co Q-10] 30 mg PO TID 02/09/21 02/09/21 Vit B Complex/Zinc/Manganese 1 each PO DAILY 02/09/21 02/09/21 [Eldertonic Liquid] buPROPion HCL [Wellbutrin Xl] 450 mg PO DAILY 02/09/21 05/17/22 levOCARNitine [Levocarnitine] 1 tab PO DAILY 02/09/21 02/09/21 metFORMIN [Glucophage] 500 mg PO BID 02/09/21 02/09/21 methocarbamoL [Methocarbamol] 500 mg PO TID PRN 02/09/21 02/09/21 traMADol [Ultram] 50 mg PO TID PRN 02/09/21 02/09/21 Furosemide [Lasix] 20 mg PO DAILY 05/17/22 05/17/22 Metoprolol Succinate [Toprol Xl] 25 mg PO BID 05/17/22 05/17/22 traZODone [Desyrel] 75 mg PO HS 05/17/22 05/17/22 - Allergies Allergies/Adverse Reactions: Allergies Allergy/AdvReac Type Severity Reaction Status Date / Time Sulfa (Sulfonamide AdvReac Rash Verified 10/07/23 12:30 Antibiotics) - Social History Does the pt smoke?: No Smoking Status: Never smoker Does the pt drink ETOH?: No Does the pt have substance abuse?: No - Immunizations Immunizations are current?: Yes - POLST Patient has POLST: No PD ED PE NORMAL - General General: Alert and oriented X 3, No acute distress, Well developed/nourished - HEENT HEENT: Atraumatic, Moist mucous membranes, Pharynx benign (Mild posterior pharynx erythema, no oral swelling or exudate) - Neck Neck: Supple, no meningeal sign - Cardiac Cardiac: RRR, Strong equal pulses - Respiratory Respiratory: No respiratory distress, Clear bilaterally - Derm Derm: Warm and dry - Neuro Neuro: Normal speech Results - Vitals Vitals: Vital Signs - 24 hr 10/07/23 12:26 Temperature 36.2 C L Heart Rate 68 Respiratory 16 Rate Blood Pressure 148/62 H O2 Saturation 97 Oxygen O2 Source Room air - Labs Labs: Laboratory Tests 10/07/23 10/07/23 12:20 13:20 Nasal Adenovirus (PCR) NOT DETECTED Nasal B. parapertussis DNA (PCR) NOT DETECTED Nasal Coronavir 229E PCR NOT DETECTED Nasal Coronavir HKU1 PCR NOT DETECTED Nasal Coronavir NL63 PCR NOT DETECTED Nasal Coronavir OC43 PCR NOT DETECTED Nasal Enterovir/Rhinovir PCR NOT DETECTED Nasal Influenza B PCR NOT DETECTED Nasal Influenza A PCR NOT DETECTED Nasal Parainfluen 1 PCR NOT DETECTED Nasal Parainfluen 2 PCR NOT DETECTED Nasal Parainfluen 3 PCR NOT DETECTED Nasal Parainfluen 4 PCR NOT DETECTED Nasal RSV (PCR) NOT DETECTED Nasal B.pertussis DNA PCR NOT DETECTED Nasal C.pneumoniae (PCR) NOT DETECTED [place] Human Metapneumo PCR NOT DETECTED Nasal M.pneumoniae (PCR) NOT DETECTED Nasal SARS-CoV-2 (PCR) NOT DETECTED Group A Strep Rapid Negative PD Medical Decision Making - ED course Complexity details: reviewed results, d/w patient ED course: Patient with sore throat for 2 days. Vital signs are stable. No signs of oral abscess or deep space infection. Rapid strep is negative and culture is pending. Respiratory swab is also pending. Patient was given a dose of Decadron. She is tolerating p.o. intake and has a can of sparkling water she has been drinking here. She is otherwise well-appearing. Patient counseled on continued supportive care as well as concerning symptoms to return for. Departure - Departure Disposition: 01 Home, Self Care Clinical Impression: Pharyngitis Condition: Stable Instructions: ED Pharyngitis Viral Comments: Your strep test is negative. Your culture is pending. We have given you a dose of a steroid to help with inflammation. Continue with hydration with fluids as well as acetaminophen. Your respiratory panel is pending. This will check for COVID, influenza, RSV and a number of other common cold viruses. We will notify you if it is positive for COVID. Otherwise you can check the patient portal for your results. You should quarantine from others until you know your COVID result. Please continue with acetaminophen or ibuprofen as needed for fevers and body aches, plenty of fluids/hydration and rest. Return to the ER with any worsening symptoms such as difficulty breathing or vomiting. Forms: PCP List Discharge Date/Time: 10/07/23 13:35
[2023-10-07] MEDS: CHERRY SYRUP 10 ML UDC PO ONE (13:24)
[2023-10-07] MEDS: DEXAMETHASONE 10 MG/ML VIAL PO STA (13:24)
[2023-10-07 14:24] LABS: B. PARAPERTUSSIS- RESP PCR PAN NOT DETECTED; B. PERTUSSIS- RESP PCR PANEL NOT DETECTED; C. PNEUMONIAE- RESP PCR PANEL NOT DETECTED; CORONAVIRUS 229E-RESP PCR NOT DETECTED; CORONAVIRUS HKU1-RESP PCR NOT DETECTED; CORONAVIRUS NL63-RESP PCR NOT DETECTED; CORONAVIRUS OC43-RESP PCR NOT DETECTED; HUMAN METAPNEUMOVIRUS NOT DETECTED; INFLUENZA A- RESP PCR PANEL NOT DETECTED; INFLUENZA B - RESP PCR PANEL NOT DETECTED; M. PNEUMONIAE- RESP PCR PANEL NOT DETECTED; PARAINFLUENZA VIRUS 1 NOT DETECTED; PARAINFLUENZA VIRUS 2 NOT DETECTED; PARAINFLUENZA VIRUS 3 NOT DETECTED; PARAINFLUENZA VIRUS 4 NOT DETECTED; RHINOVIRUS/ENTEROVIRUS NOT DETECTED; RSV- RESP PCR PANEL NOT DETECTED; SARS-CoV-2 -RESP PCR PANEL NOT DETECTED
== END 2023-10-07 13:35 | disposition home or self-care (01) ==
LOC: ED 12:19
DX: J02.9 Acute pharyngitis, unspecified (principal)
CPT/HCPCS: 87070; 87430; 87633; 99283; A9270